=== PATIENT | female | born 1945 | race African-American/Black ===

== ENCOUNTER 2017-02-28 12:06 | Emergency (ER) | payer MEDICARE ==
[~2017-02-28 12:06] MED LIST: ARIC5TAB PO; HYDR-3516 PEG; LISI10TA3 PO; NIFE10; PREV30TA3 G-TUBE
[2017-02-28 12:18] VITALS: BP 191/107; PULSE 112; RESP 20; TEMP 97.9; O2SAT 100
[2017-02-28] MEDS ORDERED: SODIUM CHLORID 0.9% 500 ML INJ 500 ML IV ONE (12:30)
--- NOTE | 2017-02-28 12:36 | PD ---
HPI Chief Complaint: Intake Clerk Problem Time Seen by Provider: 12:14 Travel History International Travel<30 days: No Contact w/Intl Traveler<30days: No Traveled to known affect area: No History of Present Illness HPI The patient is a 72-year-old [place] female who presents emergency department via private transport for gastrostomy tube replacement. The patient has a history of intraparenchymal hemorrhage, upon arrival is nonverbal. According to the paperwork the patient was unable to have her gastrostomy tube flushed and they were unable to flush and/or drawback from the gastrostomy tube. The patient is nonverbal, is unable to provide any insight. It appears the patient has a gastrostomy tube placed, however, there is no visible valve for the blowing of the gastrostomy tube. PFSH Past Medical History Arthritis: Yes Heart Rhythm Problems: No Cancer: No Cardiovascular Problems: Yes High Cholesterol: No Chest Pain: No Congestive Heart Failure: No Endocrine: No Gastrointestinal Disorders: Yes GERD: Yes Genitourinary: Yes Hiatal Hernia: No Hypertension: Yes Immune Disorder: No Kidney Stones: No Medical other: Yes (DYSPHAGIA, APHSIA, BRAIN SURGERY, UTI, BELTRAN) Musculoskeletal: Yes (CONTRACTED) Neurologic: Yes Psychiatric: Yes Reproductive: No Respiratory: No Renal Failure: No Ulcer: No Tetanus Vaccination: Unknown Past Surgical History Abdominal Surgery: Yes (PEG TUBE) Cardiac Surgery: No Ear Surgery: Yes Endocrine Surgery: No Eye Surgery: No Genitourinary Surgery: No Gynecologic Surgery: Yes (HYSTERECTOMY) Neurologic Surgery: Yes (LEFT SIDED CRANIOTOMY 09/17/2016) Oral Surgery: No Thoracic Surgery: No Other Surgery: Yes Social History Alcohol Use: No Tobacco Use: No (unable to obtain) Substance Use: No Allergies-Medications (Allergen,Severity, Reaction): Coded Allergies: No Known Allergies (Unverified , 02/28/17) UNOBTAINABLE (Unverified , 09/17/16) Reported Meds & Prescriptions Reported Meds & Active Scripts Active Lisinopril 10 Mg Tab 20 Mg PO Q12HR 30 Days hold for sbp less 120 Hydrocodone-Acetaminophen 5-325 mg Tab 1 Tab PEG Q4H PRN Prevacid Solutab ODT (Lansoprazole) 30 Mg Tab 30 Mg G-TUBE DAILY Mix with 4 ml water before giving via tube. Reported Vesicare (Solifenacin) 5 Mg Tab 5 Mg PO DAILY Milk of Magnesia Liq (Magnesium Hydroxide) 400 Mg/5 Ml Susp 30 Ml PO Q6H PRN Donepezil 5 Mg Tab 5 Mg G-TUBE HS Magnesium Citrate Liq (Magnesium Citrate) 300 Ml Liq 300 Ml PO DIRECTED PRN Multivitamin Women (Multiple Vitamins W/ Minerals) 1 Tab Tab 1 Tab G-TUBE DAILY Ascorbic Acid 500 Mg Tab 500 Mg G-TUBE DAILY Amlodipine (Amlodipine Besylate) 5 Mg Tab 5 Mg G-TUBE DAILY Review of Systems ROS Limitations: Clinical Condition Except as stated in HPI: all other systems reviewed are Neg Physical Exam Narrative GENERAL: 72-year-old after [place] female who is nonverbal. SKIN: Focused skin assessment warm/dry. HEAD: Atraumatic. Normocephalic. EYES: Pupils equal and round. 3 mm bilateral and reactive. Gaze is mostly to the left. ENT: No nasal bleeding or discharge. Dry mucous membranes. NECK: Trachea midline. No JVD. CARDIOVASCULAR: Regular, tachycardic with a heart rate of 110. RESPIRATORY: No accessory muscle use. Clear to auscultation. Breath sounds equal bilaterally. GASTROINTESTINAL: Abdomen soft, gastrostomy tube in place. Beltran catheter in place. MUSCULOSKELETAL: Contractures of the extremities. Right upper extremity is in a brace. NEUROLOGICAL: Eyes open, nonverbal, will recheck with her left upper extremity. PSYCHIATRIC: Unable to assess. Data Data Last Documented VS Vital Signs Date Time Temp Pulse Resp B/P Pulse Ox O2 Delivery O2 Flow Rate FiO2 02/28/17 16:27 107 20 176/95 100 02/28/17 12:18 97.9 Orders Complete Blood Count With Diff (02/28/17 12:27) Basic Metabolic Panel (Bmp) (02/28/17 12:27) Act Partial Throm Time (Ptt) (02/28/17 12:27) Prothrombin Time / Inr (Pt) (02/28/17 12:27) Sodium Chlorid 0.9% 500 Ml Inj (Ns 500 M (02/28/17 12:30) Gastrostomy Tube Injection (02/28/17 ) Iohexol 350 Inj (Omnipaque 350 Inj) (02/28/17 16:22) Labs Laboratory Tests Test 02/28/17 12:25 White Blood Count 6.2 TH/MM3 Red Blood Count 5.77 MIL/MM3 Hemoglobin 12.1 GM/DL Hematocrit 39.2 % Mean Corpuscular Volume 68.0 FL Mean Corpuscular Hemoglobin 21.0 PG Mean Corpuscular Hemoglobin 30.9 % Concent Red Cell Distribution Width 17.0 % Platelet Count 287 TH/MM3 Mean Platelet Volume 10.3 FL Neutrophils (%) (Auto) 69.6 % Lymphocytes (%) (Auto) 22.4 % Monocytes (%) (Auto) 6.6 % Eosinophils (%) (Auto) 0.5 % Basophils (%) (Auto) 0.9 % Neutrophils # (Auto) 4.3 TH/MM3 Lymphocytes # (Auto) 1.4 TH/MM3 Monocytes # (Auto) 0.4 TH/MM3 Eosinophils # (Auto) 0.0 TH/MM3 Basophils # (Auto) 0.1 TH/MM3 CBC Comment AUTO DIFF Differential Comment AUTO DIFF CONFIRMED Platelet Estimate NORMAL Platelet Morphology Comment NORMAL Ovalocytes 1+ Prothrombin Time 11.1 SEC Prothromb Time International 1.0 RATIO Ratio Activated Partial 24.9 SEC Thromboplast Time Sodium Level 140 MEQ/L Potassium Level 4.1 MEQ/L Chloride Level 101 MEQ/L Carbon Dioxide Level 30.0 MEQ/L Anion Gap 9 MEQ/L Blood Urea Nitrogen 16 MG/DL Creatinine 0.50 MG/DL Estimat Glomerular Filtration 146 ML/MIN Rate Random Glucose 112 MG/DL Calcium Level 10.2 MG/DL [facility] Medical Decision Making Medical Screen Exam Complete: Yes Emergency Medical Condition: Yes Medical Record Reviewed: Yes Interpretation(s) Laboratory Tests Test 02/28/17 12:25 White Blood Count 6.2 TH/MM3 Red Blood Count 5.77 MIL/MM3 Hemoglobin 12.1 GM/DL Hematocrit 39.2 % Mean Corpuscular Volume 68.0 FL Mean Corpuscular Hemoglobin 21.0 PG Mean Corpuscular Hemoglobin 30.9 % Concent Red Cell Distribution Width 17.0 % Platelet Count 287 TH/MM3 Mean Platelet Volume 10.3 FL Neutrophils (%) (Auto) 69.6 % Lymphocytes (%) (Auto) 22.4 % Monocytes (%) (Auto) 6.6 % Eosinophils (%) (Auto) 0.5 % Basophils (%) (Auto) 0.9 % Neutrophils # (Auto) 4.3 TH/MM3 Lymphocytes # (Auto) 1.4 TH/MM3 Monocytes # (Auto) 0.4 TH/MM3 Eosinophils # (Auto) 0.0 TH/MM3 Basophils # (Auto) 0.1 TH/MM3 CBC Comment AUTO DIFF Differential Comment AUTO DIFF CONFIRMED Platelet Estimate NORMAL Platelet Morphology Comment NORMAL Ovalocytes 1+ Prothrombin Time 11.1 SEC Prothromb Time International 1.0 RATIO Ratio Activated Partial 24.9 SEC Thromboplast Time Sodium Level 140 MEQ/L Potassium Level 4.1 MEQ/L Chloride Level 101 MEQ/L Carbon Dioxide Level 30.0 MEQ/L Anion Gap 9 MEQ/L Blood Urea Nitrogen 16 MG/DL Creatinine 0.50 MG/DL Estimat Glomerular Filtration 146 ML/MIN Rate Random Glucose 112 MG/DL Calcium Level 10.2 MG/DL Differential Diagnosis Differential diagnosis includes gastrostomy tube malfunction, colitis gastrostomy tube, GJ tube malfunction, dehydration. Narrative Course IV was established, labs are drawn and sent, and the patient was placed on cardiac telemetry monitoring and continuous pulse oximetry monitoring. The patient was administered 1 L of IV fluids. Consult was placed interventional radiology for gastrostomy tube replacement. Labs are unremarkable. Patient is medically clear for IR. The patient went to interventional radiology, they were able to flush and declog the gastrostomy tube, they performed an x-ray with contrast which revealed proper placement, the patient is stable for discharge home. The patient's blood pressure was elevated 170/100 with a heart rate of 99, she was unable to get her medications this morning secondary to the gastrostomy tube malfunction. Therefore, patient was administered labetalol 20 mg intravenously. The patient was discharged back to the detention. Diagnosis Primary Impression: Malfunction of gastrostomy tube Patient Instructions: General Instructions Additional Instructions: Discharge back to detention. Return if symptoms worsen or progress. Disposition: 03 DISCHARGE TO SNF (discharge back to detention) Condition: Stable Adam Santoyo MD February 28, 2017 12:36
[2017-02-28] MEDS ORDERED: VESI5TAB PO (12:47)
[2017-02-28] MEDS ORDERED: MILKSUS PO (12:47)
[2017-02-28] MEDS ORDERED: DONE5TAB7 G-TUBE (12:47)
[2017-02-28] MEDS ORDERED: ASCO500T G-TUBE (12:47)
[2017-02-28] MEDS ORDERED: MULT-120 G-TUBE (12:47)
[2017-02-28] MEDS ORDERED: MAGNSOL2 PO (12:47)
[2017-02-28] MEDS ORDERED: AMLO5TAB2 G-TUBE (12:47)
[2017-02-28 12:48] LABS: AUTOMATED NEUTROPHIL # 4.3 TH/MM3 (1.8-7.7); BASOPHIL # 0.1 TH/MM3 (0-0.2); BASOPHIL % 0.9 % (0.0-2.0); EOSINOPHIL % 0.5 % (0.0-4.0); HEMATOCRIT 39.2 % (35.0-46.0); LYMPH % 22.4 % (9.0-44.0); LYMPHOCYTE # 1.4 TH/MM3 (1.0-4.8); MEAN CORPUSCULAR HGB CONC 30.9 % (32.0-36.0); MONO % 6.6 % (0.0-8.0); NEUT % 69.6 % (16.0-70.0); PLATELET COUNT 287 TH/MM3 (150-450); RED BLOOD COUNT 5.77 MIL/MM3 (4.00-5.30); WHITE BLOOD COUNT 6.2 TH/MM3 (4.0-11.0)
[2017-02-28 12:50] LABS: HEMO FLAGS AUTO DIFF
[2017-02-28 12:57] LABS: APTT (PATIENT) 24.9 SEC (24.3-30.1); PROTHROMBIN TIME - PATIENT 11.1 SEC (9.8-11.6)
[2017-02-28 13:02] LABS: POTASSIUM 4.1 MEQ/L (3.5-5.1)
[2017-02-28 13:32] LABS: OVALOCYTES 1+ (NORMAL); PLATELET ESTIMATE SMEAR NORMAL (NORMAL); PLATELET MORPHOLOGY NORMAL (NORMAL); SCAN/DIFF AUTO DIFF CONFIRMED
[2017-02-28] MEDS ORDERED: IOHEXOL 350 MG/ML 50 ML BTL (for RAD DIAG) G-TUBE ONE (16:22)
[2017-02-28 16:27] VITALS: BP 176/95; PULSE 107; RESP 20; O2SAT 100
--- NOTE | 2017-02-28 16:40 | RADRPT ---
EXAM DATE/TIME: 02/28/2017 16:47 [facility] COMPARISON: No previous studies available for comparison. INDICATIONS : Patient with a clogged gastrostomy tube. MEDICAL HISTORY : Arthritis GERD HTN Dysphagia Aphsia UTI SURGICAL HISTORY : PEG Tube Ear Surgery Hysterectomy Left sided craniotomy ENCOUNTER: Initial ACUITY: 1 day PAIN SCORE: FLUORO TIME: 0.2 minutes IMAGE SERIES: 1 CONTRAST: 5 cc Omnipaque (iohexol) 350 PROCEDURE : 1. Fluoroscopically guided tube injection. 2. Conscious sedation with continuous EKG and oximetry monitoring. The risks, benefits and alternatives to the procedure were explained and verbal and written consent w as obtained. The site was prepped in sterile fashion. Full sterile technique was used, including ca p, mask, sterile gloves and gown and a large sterile sheet. Hand hygiene and 2% chlorhexidine and/or betadine/alcohol prep was utilized per protocol for cutaneous antisepsis. With fluoroscopic guidance the previously placed tube was injected demonstrating the tube to be in go od position and functioning normally. Conscious sedation was performed with the prescribed dosages and duration as above in the presence of an independent trained radiology nurse to assist in the monitoring of the patient. EKG and oximetry remained stable throughout the procedure. The patient tolerated the procedure well and there were n o complications. The patient was sent to post anesthesia recovery in stable condition. CONCLUSION: Uncomplicated tube injection as above. Peter Olguin MD on February 28, 2017 at 16:38 Board Certified Radiologist. This report was verified electronically.
[2017-02-28 16:45] VITALS: BP 174/85; PULSE 93; RESP 15; O2SAT 100
[2017-02-28] MEDS ORDERED: LABETALOL HCL 100 MG/20 ML VIAL IV PUSH ONE (16:45)
[2017-02-28 18:43] VITALS: BP 172/98; PULSE 95; RESP 14; O2SAT 100
== END 2017-02-28 20:12 ==
LOC: NEPE 12:06
DX: T85.518A Breakdown (mechanical) of other gastrointestinal prosthetic devices, implants and grafts, initial encounter (principal); Z43.1 Encounter for attention to gastrostomy; Z46.59 Encounter for fitting and adjustment of other gastrointestinal appliance and device; I10 Essential (primary) hypertension
CPT/HCPCS: 49465; 80048; 85025; 85610; 85730; 96361; 96374; 99283; J7040; Q9967

== ENCOUNTER 2017-03-16 18:50 | Emergency (ER) | payer MEDICARE ==
[~2017-03-16] VITALS: Ht 165.1 cm; Wt 60.0 kg
[~2017-03-16 18:50] MED LIST changes: +AMLO5TAB2 G-TUBE; -ARIC5TAB PO; +ASCO500T G-TUBE; +DONE5TAB7 G-TUBE; +MAGNSOL2 PO; +MILKSUS PO; +MULT-120 G-TUBE; -NIFE10; +VESI5TAB PO
[2017-03-16 19:15] VITALS: BP 192/104; PULSE 104; RESP 16; TEMP 98.1; O2SAT 98
--- NOTE | 2017-03-16 19:44 | PD ---
HPI Chief Complaint: Medical Clearance Time Seen by Provider: 19:35 Travel History International Travel<30 days: No Contact w/Intl Traveler<30days: No Traveled to known affect area: No History of Present Illness HPI 72-year-old female was sent from [facility] and rehabilitation evaluation of a questionable lump over the left eyebrow of unknown origin at the request the patient's daughter. 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 She has an additional history of hypertension, seizure disorder, acute renal failure, encephalopathy, GERD, ulcer , neuromuscular dysfunction bladder, and intracerebral hemorrhage. Patient's baseline is reported to be alert, disoriented, and cannot follow simple instructions. Secondary to patient's history of aphasia secondary to CVA, H&P is limited to the documentation sent by [facility] facility. PFS Past Medical History Arthritis: Yes Heart Rhythm Problems: No Cancer: No Cardiovascular Problems: Yes High Cholesterol: No Chest Pain: No Congestive Heart Failure: No Endocrine: No Gastrointestinal Disorders: Yes GERD: Yes Genitourinary: Yes Hiatal Hernia: No Hypertension: Yes Immune Disorder: No Kidney Stones: No Musculoskeletal: Yes (CONTRACTED) Neurologic: Yes Psychiatric: Yes Reproductive: No Respiratory: No Renal Failure: No Ulcer: No Past Surgical History Abdominal Surgery: Yes (PEG TUBE) Cardiac Surgery: No Ear Surgery: Yes Endocrine Surgery: No Eye Surgery: No Genitourinary Surgery: No Gynecologic Surgery: Yes (HYSTERECTOMY) Neurologic Surgery: Yes (LEFT SIDED CRANIOTOMY 09/17/2016, cranioplasty.) Oral Surgery: No Thoracic Surgery: No Other Surgery: Yes Social History Alcohol Use: No Tobacco Use: No (unable to obtain) Substance Use: No Allergies-Medications (Allergen,Severity, Reaction): Coded Allergies: No Known Allergies (Unverified , 03/17/17) Reported Meds & Prescriptions Reported Meds & Active Scripts Active Lisinopril 10 Mg Tab 20 Mg PO Q12HR 30 Days hold for sbp less 120 Hydrocodone-Acetaminophen 5-325 mg Tab 1 Tab PEG Q4H PRN Prevacid Solutab ODT (Lansoprazole) 30 Mg Tab 30 Mg G-TUBE DAILY Mix with 4 ml water before giving via tube. Reported Vesicare (Solifenacin) 5 Mg Tab 5 Mg PO DAILY Milk of Magnesia Liq (Magnesium Hydroxide) 400 Mg/5 Ml Susp 30 Ml PO Q6H PRN Donepezil 5 Mg Tab 5 Mg G-TUBE HS Magnesium Citrate Liq (Magnesium Citrate) 300 Ml Liq 300 Ml PO DIRECTED PRN Multivitamin Women (Multiple Vitamins W/ Minerals) 1 Tab Tab 1 Tab G-TUBE DAILY Ascorbic Acid 500 Mg Tab 500 Mg G-TUBE DAILY Amlodipine (Amlodipine Besylate) 5 Mg Tab 5 Mg G-TUBE DAILY Review of Systems ROS Limitations: Speech Impaired Except as stated in HPI: all other systems reviewed are Neg Physical Exam Narrative GENERAL: Well-developed, well nourished, in no acute distress, and non-ill appearing. SKIN: Focused skin assessment warm and dry. No obvious lesion, hematoma, fluctuation or induration, or tenderness noted over area of concern. Possible small amount of soft tissue swelling. HEAD: Atraumatic. Normocephalic. EYES: Pupils equal and round. EOMI. No scleral icterus. No injection or drainage. ENT: No nasal bleeding or discharge. Mucous membranes pink and moist. NECK: Trachea midline. Supple. No nuclear rigidity. CARDIOVASCULAR: Regular rate and rhythm. No murmur appreciated. RESPIRATORY: No accessory muscle use. No respiratory distress. Clear to auscultation. Breath sounds equal bilaterally. GASTROINTESTINAL: Abdomen soft, non-tender, nondistended. Hepatic and splenic margins not palpable. No pulsatile mass. MUSCULOSKELETAL: No obvious deformities. No clubbing. No cyanosis. No edema. Full range of motion. NEUROLOGICAL: Awake and alert. Data Data Last Documented VS Orders Ct Brain W/O Iv Contrast(Rout) (03/16/17 ) Ct Cerv Spine W/O Contrast (03/16/17 ) Ct Facial Bones W/O Iv Cont (03/16/17 ) Iv Access Insert/Monitor (03/16/17 20:05) Ecg Monitoring (03/16/17 20:05) Oximetry (03/16/17 20:05) Sodium Chloride 0.9% Flush (Ns Flush) (03/16/17 20:15) Nicardipine Inj (Cardene Inj) (03/16/17 20:15) Lisinopril (Prinivil) (03/16/17 20:30) MDM Medical Decision Making Medical Screen Exam Complete: Yes Emergency Medical Condition: Yes Interpretation(s) CT of cervical spine reviewed with radiologist shows: 1. No fracture or acute appearing malalignment of the cervical spine. 2. Degenerative changes as above. 3. Age indeterminate but most likely nonacute posterior disc protrusion at C3/ C4. CT of facial bones reviewed with radiologist shows: Intact face. CT of head reviewed with radiologist shows: There is a potential of the subcentimeter acute focus of subarachnoid hemorrhage left parietal lobe. A left frontal scalp hematoma is noted. Other findings are chronic Differential Diagnosis Fracture, contusion, strain, hematoma, cranial hemorrhage, head injury, other Narrative Course 2014 discussed all findings with patient's daughter's who is now at the bedside. States that the swelling has decreased significantly. States she is not certain what happened. States that she had her mom set up she eats went out to her car and when she came back noticed a bump on the head. Reports a subsided significantly from initial onset. Reports the patient has a follow-up appointment with Dr. Moore tomorrow. Patient in no obvious distress upon re-evaluation. All pertinent Radiology result(s) discussed with patient/family. Discussed patient with Dr. Khan prior to discharge, who is in agreement with plan of care and disposition.. Any questions/concerns in reference to patient diagnosis/condition discussed and clarified prior to patient's discharge. Reinforced sheer importance of close follow up with patient's primary physician or primary care clinic and neurosurgeon. Instructed patient to return to ED immediately, if symptoms return /worsen. Pt's daughter showed understanding of above instructions. Further instructions and recommendations were detailed in discharge paperwork. Pt left without difficulty out of ED at discharge. Physician Communication Physician Communication [address] findings with Dr. Higginbotham, neurosurgeon personal development mentor, states is really nothing to do for this the patient can be followed up in 1-2 days by his office for repeat CT as an outpatient. Diagnosis Primary Impression: Subarachnoid hemorrhage Additional Impression: Hematoma Patient Instructions: General Instructions, Hematoma (ED), Subarachnoid Hemorrhage (DC) Additional Instructions: Follow-up with Dr. Moore tomorrow as scheduled. Return to the emergency department if symptoms get worse. Disposition: 01 DISCHARGE HOME Condition: Stable Farhan Luna March 16, 2017 19:44
--- NOTE | 2017-03-16 19:48 | RADRPT ---
EXAM DATE/TIME: 03/16/2017 19:35 [facility] COMPARISON: CT BRAIN W/O CONTRAST, September 19, 2016, 4:27. INDICATIONS : Possible fall. Hematoma above left eyebrow. RADIATION DOSE: 56.35 CTDIvol (mGy) MEDICAL HISTORY : Cardiovascular disease. Hypertension. Dementia.Chronic kidney disease. SURGICAL HISTORY : Craniotomy. Hysterectomy. ENCOUNTER: Initial ACUITY: 1 day PAIN SCALE: 0/10 LOCATION: cranial TECHNIQUE: Multiple contiguous axial images were obtained of the head. Using automated exposure control and adj ustment of the mA and/or kV according to patient size, radiation dose was kept as low as reasonably a chievable to obtain optimal diagnostic quality images. FINDINGS: 6 mm focus of spontaneous density seen of the left high parietal lobe, most likely subarachnoid. No o ther evidence of intercranial hemorrhage. There is no mass effect or midline shift. No evidence of an acute ischemic event. Patient has had previous left craniotomy. Large area of left parietal, left frontal and left tem poral encephalomalacia noted. There is chronic appearing thickening of the overlying dura. Craniotomy defect has been repaired since the prior CT and the previously seen drain has been removed. Small left frontal scalp contusion. No acute skull abnormality demonstrated. CONCLUSION: There is a potential subcentimeter acute focus of subarachnoid hemorrhage of the left parietal lobe. A left frontal scalp hematoma is noted. Other findings are chronic and please see above. Bal Moralez MD on March 16, 2017 at 19:43 Board Certified Radiologist. This report was verified electronically.
--- NOTE | 2017-03-16 19:52 | RADRPT ---
EXAM DATE/TIME: 03/16/2017 19:35 [facility] COMPARISON: No previous studies available for comparison. INDICATIONS : Possible fall. RADIATION DOSE: 24.27 CTDIvol (mGy) MEDICAL HISTORY : Cardiovascular disease. Hypertension. Dementia.Chronic kidney disease. SURGICAL HISTORY : Craniotomy. Hysterectomy. ENCOUNTER: Initial ACUITY: 1 day PAIN SCALE: 0/10 LOCATION: neck TECHNIQUE: Volumetric scanning of the cervical spine was performed. Multiplanar reconstructions in the sagittal, coronal and oblique axial planes were performed. Using automated exposure control and adjustment o f the mA and/or kV according to patient size, radiation dose was kept as low as reasonably achievable to obtain optimal diagnostic quality images. FINDINGS: There are a few millimeters of anterolisthesis at C4/C5 that appear degenerative. There is a degenera tive appearing kyphosis centered around C5/C6. No fracture is demonstrated or evidence of acute malal ignment. Vertebral bodies have normal height. There is multilevel disc space narrowing with uncovertebral and facet osteoarthritis, severe at C5/C6 , moderate at C6/C7 and C7/T1, mild at the other levels. There is a moderate size posterior disc prot rusion at C3/C4 causing mild spinal stenosis. Juxtavertebral soft tissues are within normal limits. CONCLUSION: 1. No fracture or acute appearing malalignment of the cervical spine. 2. Degenerative changes as above. 3. Age indeterminate but most likely nonacute posterior disc protrusion at C3/C4. Bal Moralez MD on March 16, 2017 at 19:48 Board Certified Radiologist. This report was verified electronically.
--- NOTE | 2017-03-16 19:54 | RADRPT ---
EXAM DATE/TIME: 03/16/2017 19:35 [facility] COMPARISON: No previous studies available for comparison. INDICATIONS : Possible fall. Hematoma above left eyebrow. RADIATION DOSE: 21.96 CTDIvol (mGy) MEDICAL HISTORY : Dementia. Hypertension. Cardiovascular diseaseChronic kidney disease. SURGICAL HISTORY : Craniotomy. Hysterectomy. ENCOUNTER: Initial ACUITY: 1 day PAIN SCORE: 2/10 LOCATION: Left facial TECHNIQUE: Volumetric scanning of the facial bones was performed. Using automated exposure control and adjustme nt of the mA and/or kV according to patient size, radiation dose was kept as low as reasonably achiev able to obtain optimal diagnostic quality images. FINDINGS: ORBITS: The orbital and infraorbital osseous structures are intact. The retroconal structures have a normal configuration. No radiopaque foreign bodies are seen. NASAL BONE: The nasal bone and maxillary spine are intact ZYGOMATIC ARCHES: Symmetric without evidence of fracture. SINUSES: The maxillary, ethmoid and frontal sinuses are intact. No air-fluid levels seen. NASAL CAVITY: The nasal septum is intact and midline. The lacrimal ducts are intact. SOFT TISSUES: No radiopaque foreign bodies seen. No soft-tissue swelling is seen. INTRACRANIAL: No intracranial air seen. CRIBIFORM PLATE: Grossly intact. CONCLUSION: Intact face. Bal Moralez MD on March 16, 2017 at 19:52 Board Certified Radiologist. This report was verified electronically.
[2017-03-16 20:00] VITALS: BP 186/92; PULSE 104; RESP 15; O2SAT 97
[2017-03-16] MEDS ORDERED: SODIUM CHLORIDE 0.9% FLUSH 10 ML FLUSH IV FLUSH PRN (20:15)
[2017-03-16] MEDS ORDERED: niCARdipine INJ 25 MG in SODIUM CHLOR 0.9% 250 ML INJ 250 ML IV ONE (20:15)
[2017-03-16] MEDS ORDERED: LISINOPRIL 20 MG TAB PEG ONE (20:30)
[2017-03-16 21:00] VITALS: BP 165/92; PULSE 103; RESP 15; O2SAT 97
[2017-03-17 02:09] VITALS: BP 142/80; PULSE 82; RESP 20; TEMP 99.3; O2SAT 98
[2017-03-17 08:25] VITALS: BP 144/84; PULSE 98; RESP 16; O2SAT 98
[2017-03-17 10:26] VITALS: BP 142/78
== END 2017-03-17 10:28 | disposition home or self-care (01) ==
LOC: NEPE 18:50 → NEPD 03-17 10:28
DX: I60.7 Nontraumatic subarachnoid hemorrhage from unspecified intracranial artery (principal); S00.83XA Contusion of other part of head, initial encounter; I69.320 Aphasia following cerebral infarction; I69.359 Hemiplegia and hemiparesis following cerebral infarction affecting unspecified side; I69.391 Dysphagia following cerebral infarction; I10 Essential (primary) hypertension; N28.89 Other specified disorders of kidney and ureter; K21.9 Gastro-esophageal reflux disease without esophagitis
CPT/HCPCS: 70450; 70486; 72125

== ENCOUNTER 2017-06-19 14:07 | Inpatient (IN) | payer MEDICARE ==
[~2017-06-19] VITALS: Ht 175.3 cm; Wt 58.8 kg
[2017-06-19] VITALS (11 sets, daily range): BP systolic 146–227; BP diastolic 69–108; PULSE 78–133; RESP 14–16; TEMP 97.8–98.9; O2SAT 98–100
[~2017-06-19 14:07] MED LIST changes: -AMLO5TAB2 G-TUBE; +AMLO5TAB2 PEG; -ASCO500T G-TUBE; +ASCO500T PEG; -DONE5TAB7 G-TUBE; +DONE5TAB7 PEG; +MAGNSOL2 PEG; -MAGNSOL2 PO; +MILKSUS PEG; -MILKSUS PO
[2017-06-19] MEDS ORDERED: LORazepam 2 MG/ML VIAL ONE (15:28)
[2017-06-19] MEDS ORDERED: LORazepam 2 MG/ML VIAL IM ONE (15:30)
[2017-06-19 15:38] LABS: AUTOMATED NEUTROPHIL # 3.6 TH/MM3 (1.8-7.7); BASOPHIL # 0.1 TH/MM3 (0-0.2); BASOPHIL % 1.2 % (0.0-2.0); EOSINOPHIL # 0.1 TH/MM3 (0-0.4); EOSINOPHIL % 1.1 % (0.0-4.0); HEMATOCRIT 38.4 % (35.0-46.0); HEMO FLAGS DIFF FINAL; LYMPH % 33.7 % (9.0-44.0); LYMPHOCYTE # 2.1 TH/MM3 (1.0-4.8); MEAN CELL VOLUME 69.5 FL (80.0-100.0); MEAN CORPUSCULAR HEMOGLOBIN 21.4 PG (27.0-34.0); MEAN CORPUSCULAR HGB CONC 30.8 % (32.0-36.0); MONO % 7.7 % (0.0-8.0); NEUT % 56.3 % (16.0-70.0); PLATELET COUNT 274 TH/MM3 (150-450); RED BLOOD COUNT 5.52 MIL/MM3 (4.00-5.30); RED CELL DISTRIBUTION WIDTH 17.9 % (11.6-17.2); WHITE BLOOD COUNT 6.3 TH/MM3 (4.0-11.0)
--- NOTE | 2017-06-19 15:43 | PD.CONS ---
HPI Service neurosurgery Consult Requested By Dr Hicks Reason for Consult Brain lesion Primary Care Physician Barber Tucker, DO History of Present Illness This is a 72 year old female who was brought to [place] emergency department with altered mental status. She has history of prior ICH and a prior craniotomy in 2016. She had a hemorrhagic stroke and she is at baseline aphasic. In addition nshe is bedridden and is fed by a G-tube. She is a resident [facility], followed by Dr. Reis. She was taken to the emergency department having had a CT scan done for increased generalized weakness and lethargy. She was seen at [facility] ER and a CT scan showed a 1 cm lesion in the right parietal lobe which is hyperdense concerning for an intracranial hemorrhage. Upon presentation to [facility] ER she was hemodynamically stable. She had a generalized tonic clonic seizure. No tongue bitting. No incontinence of stool. No incontinence of urine. she was given anticonvulsants ROS - General Review of Systems Constitutional: COMPLAINS OF: Fever, Dizziness Patient unable to give ROS PFSH Past Family Social History Allergies: Coded Allergies: No Known Allergies (Unverified , 03/17/17) Past Medical History Arthritis CVA Dementia GERD HTN Past Surgical History Peg tube placement Hysterectomy ear surgery Active Ordered Medications Current Medications Medications (Trade) Dose Ordered Sig/Yeimy Route Start Time Stop Time Status Last Admin (Zofran Inj) 4 mg Q6H PRN IV 06/19/17 17:30 (Tylenol) 650 mg Q4H PRN PO 06/19/17 17:30 (Tylenol Supp) 650 mg Q4H PRN RECTAL 06/19/17 17:30 (NS Flush) 2 ml BID IV FLUSH 06/19/17 21:00 06/20/17 09:00 (NS Flush) 2 ml UNSCH PRN IVF 06/19/17 17:30 (Norvasc) 5 mg DAILY G-TUBE 06/20/17 09:00 06/20/17 08:59 (Vitamin C) 500 mg DAILY G-TUBE 06/20/17 09:00 06/20/17 09:00 (Aricept) 5 mg HS G-TUBE 06/19/17 21:00 06/19/17 20:45 ([place] 5-325 Mg) 1 tab Q4H PRN PEG 06/19/17 17:45 (Prevacid Odt) 30 mg DAILY G-TUBE 06/20/17 09:00 06/20/17 08:59 (Prinivil) 20 mg Q12HR PO 06/19/17 21:00 06/20/17 09:00 (Milk Of Magnesia Liq) 30 ml Q6H PRN PO 06/19/17 17:45 (Detrol La) 2 mg DAILY PO 06/19/17 09:00 06/20/17 09:00 Nicardipine HCl 25 mg/Sodium Chloride 260 ml @ 52 mls/hr Q5H PRN IV 06/19/17 21:28 Family History Unable to give history Social History Lives at [facility] Physical Exam Physical Exam Vital Signs Vital Signs Date Time Temp Pulse Resp B/P (MAP) Pulse Ox O2 Delivery O2 Flow Rate FiO2 06/20/17 14:00 93 06/20/17 12:00 74 06/20/17 10:00 74 06/20/17 08:00 74 06/20/17 07:00 100 Room Air 06/20/17 07:00 76 06/20/17 06:00 73 06/20/17 04:00 78 06/20/17 04:00 98.9 78 15 107/60 (76) 99 06/20/17 02:00 77 06/20/17 00:00 98.7 83 15 129/68 (88) 99 06/20/17 00:00 74 06/19/17 23:00 78 06/19/17 23:00 80 123/72 06/19/17 22:00 80 06/19/17 21:16 89 161/76 06/19/17 20:45 90 177/83 06/19/17 20:00 99 Room Air 06/19/17 20:00 98.9 99 14 163/85 (111) 98 06/19/17 20:00 99 06/19/17 19:20 99 06/19/17 18:53 96 16 146/78 (100) 99 06/19/17 18:01 93 16 148/69 (95) 100 Room Air 06/19/17 17:58 21 06/19/17 17:46 112 16 164/89 (114) 100 Room Air 06/19/17 17:13 118 06/19/17 17:11 124 15 199/95 (129) 100 Room Air 06/19/17 16:00 133 16 227/108 (147) 98 Room Air 06/19/17 14:51 95 100 06/19/17 14:48 97.8 87 14 156/80 (105) 99 Physical Exam CONSTITUTIONAL/GENERAL: This is an frail, elderly female in bed in no acute distress. TUBES/LINES/DRAINS: PIV's, Choudhury catheter. SKIN: No jaundice, rashes, or lesions. No wounds seen anteriorly. Skin temperature appropriate. Not diaphoretic. Per DTR excoriation on buttocks HEAD: Atraumatic. Normocephalic. EYES: No scleral icterus. No injection or drainage. ENT: Unable to evaluate hearing. Nose without bleeding or purulent drainage. Moist oral mucosa. NECK: Trachea midline. Supple. CARDIOVASCULAR: Regular rate and rhythm without murmurs, gallops, or rubs. No JVD. Peripheral pulses symmetric. RESPIRATORY/CHEST: Symmetric, unlabored respirations. Clear, diminished to auscultation. Breath sounds equal bilaterally. No wheezes, rales, or rhonchi. GASTROINTESTINAL: Abdomen soft, non-tender, nondistended. Bowel sounds present. PEG tube in place. GENITOURINARY: Without palpable bladder distension. Choudhury catheter in place. MUSCULOSKELETAL: Muscular atrophy in all 4 extremities. Contracted extremities. Bilateral foot drop. No mottling or clubbing. NEUROLOGICAL: Awake and alert. Eyes open, not tracking. Not following commands. Nonverbal. Left-sided facial droop noted. Laboratory Past Family Social History Allergies: Coded Allergies: No Known Allergies (Unverified , 03/17/17) Physical Exam Vital Signs Vital Signs Date Time Temp Pulse Resp B/P (MAP) Pulse Ox O2 Delivery O2 Flow Rate FiO2 06/19/17 14:51 95 100 06/19/17 14:48 97.8 87 14 156/80 (105) 99 Laboratory Laboratory Tests Test 06/19/17 15:00 White Blood Count 6.3 Red Blood Count 5.52 Hemoglobin 11.8 Hematocrit 38.4 Mean Corpuscular Volume 69.5 Mean Corpuscular Hemoglobin 21.4 Mean Corpuscular Hemoglobin Concent 30.8 Red Cell Distribution Width 17.9 Platelet Count 274 Mean Platelet Volume 10.1 Neutrophils (%) (Auto) 56.3 Lymphocytes (%) (Auto) 33.7 Monocytes (%) (Auto) 7.7 Eosinophils (%) (Auto) 1.1 Basophils (%) (Auto) 1.2 Neutrophils # (Auto) 3.6 Lymphocytes # (Auto) 2.1 Monocytes # (Auto) 0.5 Eosinophils # (Auto) 0.1 Basophils # (Auto) 0.1 CBC Comment DIFF FINAL Differential Comment Result Diagram: 06/19/17 1500 Attending Statement Neuro. neuro checks in a serial fashion. I recommend nonoperative supportive care. I have discussed the case with the emergency room physician Antihypertensives to keep her blood pressure controlled Keppra for prophylaxis of seizures. Pulmonary. aggressive pulmonary toilette, nasotracheal suction, and breathing treatments with nebulizers. PT and OT evaluation Nutrition. Oral diet Renal. monitor closely urine output, BUN and creatinine Endocrine. Monitor serial Acu checks and SSI as needed in detail ID monitor for signs of infection Protonix for stress ulcer prophylaxis Jero audrey and SCD's for DVT prophylaxis Blaise Moore MD Jun 19, 2017 15:43
[2017-06-19 15:44] LABS: BACTERIA, URINE MANY /hpf; BLOOD, URINE TRACE (NEG); COMMENT (UR) CULTURE INDICATED; CULTURE IF INDICATED CULTURE INDICATED; GLUCOSE,URINE NEG (NEG); KETONE, URINE NEG (NEG); NITRITE,URINE POS (NEG); PH, URINE 7.5 (5.0-8.5); SQUAMOUS EPITHELIAL CELL URINE 3 /hpf (0-5); URINE COLOR YELLOW (YELLW/STRAW)
[2017-06-19] MEDS ORDERED: PHENYTOIN INJ 1,000 MG in SODIUM CHLORIDE 0.9% INJ 100 ML IV ONE (15:45)
[2017-06-19 15:51] LABS: ALT (GPT) 20 U/L (10-53); ANION GAP 7 MEQ/L (5-15); AST (GOT) 17 U/L (15-37); BICARBONATE 29.3 MEQ/L (21.0-32.0); BLOOD UREA NITROGEN 15 MG/DL (7-18); CHLORIDE 104 MEQ/L (98-107); GLOMERULAR FILTRATION RATE 140 ML/MIN (>89); POTASSIUM 3.8 MEQ/L (3.5-5.1); SODIUM (NA) 140 MEQ/L (136-145)
[2017-06-19 15:52] LABS: ALKALINE PHOSPHATASE 118 U/L (45-117); TOTAL BILIRUBIN ADULT 0.4 MG/DL (0.2-1.0)
[2017-06-19] MEDS ORDERED: cefTRIAXone INJ 1,000 MG in SODIUM CHLORIDE 0.9% INJ 100 ML IV ONE (17:00)
[2017-06-19] MEDS ORDERED: niCARdipine INJ 25 MG in SODIUM CHLOR 0.9% 250 ML INJ 250 ML IV ONE (17:15)
[2017-06-19] MEDS ORDERED: ACETAMINOPHEN 325 MG TAB PO PRN (17:30)
[2017-06-19] MEDS ORDERED: ACETAMINOPHEN 650 MG SUPP RECTAL PRN (17:30)
[2017-06-19] MEDS ORDERED: SODIUM CHLORIDE 0.9% FLUSH 10 ML FLUSH IVF PRN (17:30)
[2017-06-19] MEDS ORDERED: ONDANSETRON HCL 4 MG/2 ML VIAL IV PRN (17:30)
[2017-06-19] MEDS ORDERED: MAGNESIUM HYDROXIDE SUSP 30 ML CUP PO PRN (17:45)
[2017-06-19] MEDS ORDERED: TYLE325T PEG (17:58)
[2017-06-19] MEDS ORDERED: ZINC220T PEG (17:58)
[2017-06-19] MEDS ORDERED: DULC10SU3 RECTAL (17:58)
[2017-06-19] MEDS ORDERED: ZANT150T2 PEG (17:58)
[2017-06-19] MEDS ORDERED: ENEMENE5 RECTAL (17:58)
--- NOTE | 2017-06-19 18:17 | PD ---
HPI Chief Complaint: Abnormal Results Time Seen by Provider: 14:33 Travel History International Travel<30 days: No Contact w/Intl Traveler<30days: No History of Present Illness HPI This is a 72 year old female who presents to the emergency department who has a history of stroke who is at baseline aphasic, bedridden and is fed by a G-tube who lives in a alf who presents to the emergency department having had a CT scan done to follow-up on possible hydrocephalus when it was found that she had a small 1 cm lesion in the right parietal lobe which is hyperdense concerning for an intracranial hemorrhage. Her daughter reports that she thinks she's been more tired than normal. Her daughter from out of state as her dedicated power of workers compensation attorney. I spoke to both that daughter and the daughter who is at her bedside. They both concurred that the patient would not want to be resuscitated if she were to naturally in the hospital. They would not want aggressive measures for her and there would like her to be kept comfortable. They were agreeable to a DNR/DNI order. PFSH Past Medical History Arthritis: Yes Heart Rhythm Problems: No Cancer: No Cardiovascular Problems: Yes High Cholesterol: No Chest Pain: No Congestive Heart Failure: No Cerebrovascular Accident: Yes Dementia: Yes Endocrine: No Gastrointestinal Disorders: Yes GERD: Yes Genitourinary: Yes Hiatal Hernia: No Hypertension: Yes Immune Disorder: No Kidney Stones: No Musculoskeletal: Yes (CONTRACTED) Neurologic: Yes Psychiatric: Yes Reproductive: No Respiratory: No Renal Failure: No Ulcer: No Tetanus Vaccination: Unknown Influenza Vaccination: No ?: Not Past Surgical History Abdominal Surgery: Yes (PEG TUBE) Cardiac Surgery: No Ear Surgery: Yes Endocrine Surgery: No Eye Surgery: No Genitourinary Surgery: No Gynecologic Surgery: Yes (HYSTERECTOMY) Hysterectomy: Yes Neurologic Surgery: Yes Oral Surgery: No Thoracic Surgery: No Other Surgery: Yes Social History Alcohol Use: No Tobacco Use: No Substance Use: No Allergies-Medications (Allergen,Severity, Reaction): Coded Allergies: No Known Allergies (Unverified , 03/17/17) Reported Meds & Prescriptions Reported Meds & Active Scripts Active Lisinopril 10 Mg Tab 20 Mg PO Q12HR 30 Days hold for sbp less 120 Hydrocodone-Acetaminophen 5-325 mg Tab 1 Tab PEG Q4H PRN Reported Zinc Sulfate 220 Mg Tab 220 Mg PEG DAILY Zantac (Ranitidine HCl) 150 Mg Tab 150 Mg PEG DAILY Enema Disposable (Sodium Phosphates) 1 Damaris Damaris 1 Applic RECTAL IN THE AM PRN Dulcolax Supp (Bisacodyl) 10 Mg Supp 10 Mg RECTAL IN THE AM PRN Tylenol (Acetaminophen) 325 Mg Tab 650 Mg PEG Q4H PRN Milk of Magnesia Liq (Magnesium Hydroxide) 400 Mg/5 Ml Susp 30 Ml PEG HS PRN Donepezil 5 Mg Tab 5 Mg PEG HS Magnesium Citrate Liq (Magnesium Citrate) 300 Ml Liq 300 Ml PEG IN THE AM PRN Ascorbic Acid 500 Mg Tab 500 Mg PEG DAILY Amlodipine (Amlodipine Besylate) 5 Mg Tab 5 Mg PEG DAILY Review of Systems ROS Limitations: Unresponsive Physical Exam Narrative GENERAL: Chronically ill-appearing SKIN: Focused skin assessment warm and dry. HEAD: Atraumatic. Normocephalic. EYES: Pupils equal and round. No injection or drainage. ENT: Moist mucous membranes NECK: Trachea midline. CARDIOVASCULAR: Regular rate and rhythm. No murmur appreciated. RESPIRATORY: Clear to auscultation. Breath sounds equal bilaterally. GASTROINTESTINAL: Abdomen soft, non-tender, nondistended. NEUROLOGICAL: Some gaze preference to the left, right upper and right lower extremities are flaccid, patient opens eyes spontaneously but does not make sounds on my exam. Data Data Last Documented VS Vital Signs Date Time Temp Pulse Resp B/P (MAP) Pulse Ox O2 Delivery O2 Flow Rate FiO2 06/19/17 17:13 118 06/19/17 17:11 15 100 Room Air 06/19/17 14:48 97.8 Orders Orders Complete Blood Count With Diff (06/19/17 14:44) Comprehensive Metabolic Panel (06/19/17 14:44) ^ Insert Iv (06/19/17 14:44) Urinary Catheter Insert/Apply (06/19/17 14:44) Urinalysis - C+S If Indicated (06/19/17 14:44) Lorazepam Inj (Ativan Inj) (06/19/17 15:30) Lorazepam Inj (Ativan Inj) (06/19/17 15:28) Phenytoin Inj (Dilantin Inj) (06/19/17 15:45) Urine Culture (06/19/17 15:00) Ceftriaxone Inj (Rocephin Inj) (06/19/17 17:00) Nicardipine Inj (Cardene Inj) (06/19/17 17:15) Admit Order (Ed Use Only) (06/19/17 17:13) Code Status (06/19/17 17:13) Labs Laboratory Tests Test 06/19/17 15:00 White Blood Count 6.3 TH/MM3 Red Blood Count 5.52 MIL/MM3 Hemoglobin 11.8 GM/DL Hematocrit 38.4 % Mean Corpuscular Volume 69.5 FL Mean Corpuscular Hemoglobin 21.4 PG Mean Corpuscular Hemoglobin Concent 30.8 % Red Cell Distribution Width 17.9 % Platelet Count 274 TH/MM3 Mean Platelet Volume 10.1 FL Neutrophils (%) (Auto) 56.3 % Lymphocytes (%) (Auto) 33.7 % Monocytes (%) (Auto) 7.7 % Eosinophils (%) (Auto) 1.1 % Basophils (%) (Auto) 1.2 % Neutrophils # (Auto) 3.6 TH/MM3 Lymphocytes # (Auto) 2.1 TH/MM3 Monocytes # (Auto) 0.5 TH/MM3 Eosinophils # (Auto) 0.1 TH/MM3 Basophils # (Auto) 0.1 TH/MM3 CBC Comment DIFF FINAL Differential Comment Urine Color YELLOW Urine Turbidity CLOUDY Urine pH 7.5 Urine Specific [place] 1.010 Urine Protein TRACE mg/dL Urine Glucose (UA) NEG mg/dL Urine Ketones NEG mg/dL Urine Occult Blood TRACE Urine Nitrite POS Urine Bilirubin NEG Urine Urobilinogen LESS THAN 2.0 MG/DL Urine Leukocyte Esterase LARGE Urine RBC 6 /hpf Urine WBC 91 /hpf Urine Squamous Epithelial Cells 3 /hpf Urine Amorphous Sediment RARE Urine Bacteria MANY /hpf Microscopic Urinalysis Comment CULTURE INDICATED Blood Urea Nitrogen 15 MG/DL Creatinine 0.52 MG/DL Random Glucose 95 MG/DL Total Protein 8.3 GM/DL Albumin 3.4 GM/DL Calcium Level 10.2 MG/DL Alkaline Phosphatase 118 U/L Aspartate Amino Transf (AST/SGOT) 17 U/L Alanine Aminotransferase (ALT/SGPT) 20 U/L Total Bilirubin 0.4 MG/DL Sodium Level 140 MEQ/L Potassium Level 3.8 MEQ/L Chloride Level 104 MEQ/L Carbon Dioxide Level 29.3 MEQ/L Anion Gap 7 MEQ/L Estimat Glomerular Filtration Rate 140 ML/MIN [facility] Medical Decision Making Medical Screen Exam Complete: Yes Emergency Medical Condition: Yes Medical Record Reviewed: Yes (patient was admitted in February for concern for possible subarachnoid hemorrhage in the left parietal lobe.) Interpretation(s) No leukocytosis Electrolytes are reassuring Urinalysis demonstrates urinary tract infection Differential Diagnosis Intracranial hemorrhage, seizure, Urinary tract infection, pyelonephritis Narrative Course This is a 72-year-old female who is lying has a very poor functional status who presents to the emergency department having had a CT scan concerning for possible new intracranial hemorrhage. Here in the emergency department she had a 1 minute tonic-clonic seizure during which she bit her tongue. She was given 1 mg of IV Ativan and she was loaded with Dilantin. Her daughter says she's never had seizures before. Labs are obtained which demonstrate a urinary tract infection. Her Choudhury catheter was exchanged here in the emergency department. I spoke to Dr. Moore who came to see the patient at bedside. I spoke to the patient's daughters who are prioritizing comfort care and would not want that a surgical intervention or escalation of care to involve intubation or CPR. A DNR order was placed in the chart. Patient will be admitted to the intensive care unit for blood pressure and seizure management and both neurology and palliative care will be consulted. Family would still like to identify the etiology of her deterioration of possible. Critical Care Narrative Aggregate critical care time was 45 minutes. Time to perform other separately billable procedures was not included in the critical care time. My time did not include minutes spent treating any other patients simultaneously or on activities that did not directly contribute to the patient's treatment. The services I provided to this patient were to treat and/or prevent clinically significant deterioration that could result in: Disability, I provided critical care services requiring my management, as noted below: Chart data review, documentation time, medication orders and management, vital sign assessments/reviewing monitor data, ordering and reviewing lab tests, ordering and interpreting/reviewing x-rays and diagnostic studies, care of the patient and discussion of the patient with the admitting physicians. Physician Communication Physician Communication Discussed with Dr. Moore Diagnosis Primary Impression: Intraparenchymal hemorrhage of brain Admitting Information Admitting Physician Requests: it Gisella Hicks MD Jun 19, 2017 18:17
--- NOTE | 2017-06-19 18:25 | PD.CONS ---
HPI Service Critical Care Medicine Consult Requested By Primary Care Physician Barber Tucker DO History of Present Illness 72 year old female with a history of stroke who is at baseline aphasic, bedridden and is fed by a G-tube who lives in a group home presents having had a CT scan done to follow-up on possible hydrocephalus. Incidentally it was found that she had a small 1 cm lesion in the right parietal lobe which is hyperdense concerning for an intracranial hemorrhage. Per chart documentation the patient would not want to be resuscitated if she were to naturally in the hospital. The family would not want aggressive measures for her and there would like her to be kept comfortable. They were agreeable to a DNR/DNI order. Review of Systems ROS Unobtainable patient is nonverbal Past Family Social History Allergies: Coded Allergies: No Known Allergies (Unverified , 03/17/17) Past Medical History Arthritis Cerebrovascular Accident Dementia GERD Hypertension Past Surgical History PEG tube placement Hysterectomy Ear surgery Reported Medications Reported Meds & Active Scripts Active Lisinopril 10 Mg Tab 20 Mg PO Q12HR 30 Days hold for sbp less 120 Hydrocodone-Acetaminophen 5-325 mg Tab 1 Tab PEG Q4H PRN Reported Zinc Sulfate 220 Mg Tab 220 Mg PEG DAILY Zantac (Ranitidine HCl) 150 Mg Tab 150 Mg PEG DAILY Enema Disposable (Sodium Phosphates) 1 Damaris Damaris 1 Applic RECTAL IN THE AM PRN Dulcolax Supp (Bisacodyl) 10 Mg Supp 10 Mg RECTAL IN THE AM PRN Tylenol (Acetaminophen) 325 Mg Tab 650 Mg PEG Q4H PRN Milk of Magnesia Liq (Magnesium Hydroxide) 400 Mg/5 Ml Susp 30 Ml PEG HS PRN Donepezil 5 Mg Tab 5 Mg PEG HS Magnesium Citrate Liq (Magnesium Citrate) 300 Ml Liq 300 Ml PEG IN THE AM PRN Ascorbic Acid 500 Mg Tab 500 Mg PEG DAILY Amlodipine (Amlodipine Besylate) 5 Mg Tab 5 Mg PEG DAILY Active Ordered Medications Current Medications Medications (Trade) Dose Ordered Sig/Yeimy Route PRN Reason Start Time Stop Time Status Last Admin Dose Admin Ondansetron HCl (Zofran Inj) 4 mg Q6H PRN IV NAUSEA OR VOMITING 06/19/17 17:30 Acetaminophen (Tylenol) 650 mg Q4H PRN PO Temp>101F, Headache 06/19/17 17:30 Acetaminophen (Tylenol Supp) 650 mg Q4H PRN RECTAL Temp>101F, Headache 06/19/17 17:30 Sodium Chloride (NS Flush) 2 ml BID IV FLUSH 06/19/17 21:00 06/19/17 20:46 Sodium Chloride (NS Flush) 2 ml UNSCH PRN IVF FLUSH AFTER USING IV ACCESS 06/19/17 17:30 Amlodipine Besylate (Norvasc) 5 mg DAILY G-TUBE 06/20/17 09:00 Ascorbic Acid (Vitamin C) 500 mg DAILY G-TUBE 06/20/17 09:00 Donepezil HCl (Aricept) 5 mg HS G-TUBE 06/19/17 21:00 06/19/17 20:45 Acetaminophen/ Hydrocodone Bitart ([place] 5-325 Mg) 1 tab Q4H PRN PEG PAIN SCALE 1 TO 10 06/19/17 17:45 Lansoprazole (Prevacid Odt) 30 mg DAILY G-TUBE 06/20/17 09:00 Lisinopril (Prinivil) 20 mg Q12HR PO 06/19/17 21:00 06/19/17 20:46 Magnesium Hydroxide (Milk Of Inventalatorkesha Liq) 30 ml Q6H PRN PO CONSTIPATION 06/19/17 17:45 Tolterodine Tartrate (Detrol La) 2 mg DAILY PO 06/19/17 09:00 Nicardipine HCl 25 mg/Sodium Chloride 260 ml @ 52 mls/hr Q5H PRN IV Blood pressure management 06/19/17 21:28 Family History No family history of early coronary artery disease or malignancy Social History Negative for tobacco alcohol or illicit drug abuse Physical Exam Vital Signs Vital Signs Date Time Temp Pulse Resp B/P (MAP) Pulse Ox O2 Delivery O2 Flow Rate FiO2 06/19/17 18:01 93 16 148/69 (95) 100 Room Air 06/19/17 17:58 21 06/19/17 17:46 112 16 164/89 (114) 100 Room Air 06/19/17 17:13 118 06/19/17 17:11 124 15 199/95 (129) 100 Room Air 06/19/17 16:00 133 16 227/108 (147) 98 Room Air 06/19/17 14:51 95 100 06/19/17 14:48 97.8 87 14 156/80 (105) 99 Physical Exam GENERAL: Elderly debilitated woman, nonverbal lethargic SKIN: Warm and dry. HEAD: Normocephalic. EYES: No scleral icterus. No injection or drainage. NECK: Supple, trachea midline. No JVD or lymphadenopathy. CARDIOVASCULAR: Regular rate and rhythm without murmurs, gallops, or rubs. RESPIRATORY: Breath sounds equal bilaterally. No accessory muscle use. GASTROINTESTINAL: Abdomen soft, non-tender, nondistended. MUSCULOSKELETAL: No cyanosis, or edema. BACK: Nontender without obvious deformity. NEURO EXAM: GCS: M3 V1 E3 Mental Status: The patient is lethargic and nonverbal Cranial Nerves: Pupils are round, reactive to light Reflexes: Biceps, patellar, and Achilles are 2/4 bilaterally. No clonus. Laboratory Laboratory Tests Test 06/19/17 15:00 White Blood Count 6.3 Red Blood Count 5.52 Hemoglobin 11.8 Hematocrit 38.4 Mean Corpuscular Volume 69.5 Mean Corpuscular Hemoglobin 21.4 Mean Corpuscular Hemoglobin Concent 30.8 Red Cell Distribution Width 17.9 Platelet Count 274 Mean Platelet Volume 10.1 Neutrophils (%) (Auto) 56.3 Lymphocytes (%) (Auto) 33.7 Monocytes (%) (Auto) 7.7 Eosinophils (%) (Auto) 1.1 Basophils (%) (Auto) 1.2 Neutrophils # (Auto) 3.6 Lymphocytes # (Auto) 2.1 Monocytes # (Auto) 0.5 Eosinophils # (Auto) 0.1 Basophils # (Auto) 0.1 CBC Comment DIFF FINAL Differential Comment Urine Color YELLOW Urine Turbidity CLOUDY Urine pH 7.5 Urine Specific [place] 1.010 Urine Protein TRACE Urine Glucose (UA) NEG Urine Ketones NEG Urine Occult Blood TRACE Urine Nitrite POS Urine Bilirubin NEG Urine Urobilinogen LESS THAN 2.0 Urine Leukocyte Esterase LARGE Urine RBC 6 Urine WBC 91 Urine Squamous Epithelial Cells 3 Urine Amorphous Sediment RARE Urine Bacteria MANY Microscopic Urinalysis Comment CULTURE INDICATED Blood Urea Nitrogen 15 Creatinine 0.52 Random Glucose 95 Total Protein 8.3 Albumin 3.4 Calcium Level 10.2 Alkaline Phosphatase 118 Aspartate Amino Transf (AST/SGOT) 17 Alanine Aminotransferase (ALT/SGPT) 20 Total Bilirubin 0.4 Sodium Level 140 Potassium Level 3.8 Chloride Level 104 Carbon Dioxide Level 29.3 Anion Gap 7 Estimat Glomerular Filtration Rate 140 Date/Time Source Procedure Growth Status 06/19/17 15:00 Urine Clean Catch Urine Culture Pending Received Result Diagram: 06/19/17 1500 06/19/17 1500 Assessment and Plan Assessment and Plan New PROCESSOR GRAIN lesion - neuro checks in a serial fashion. - nonoperative supportive care - Keppra for prophylaxis of seizures - Management per neurosurgery Hypertension - Cardene drip - SBP goal less than 150 History of Cerebrovascular Accident - PT and OT evaluation Dementia - Supportive care GERD - Protonix DVT GI prophylaxis - Teds SCDs - No pharmacological DVT prophylaxis due to suspected ICH - Protonix Critical Care: The total critical care time was 35 minutes. Time to perform other separately billable procedures was not included in the critical care time. Mitch Contreras MD Jun 19, 2017 18:25
[2017-06-19] MEDS: DONEPEZIL HCL 5 MG TAB G-TUBE SCH (20:45)
[2017-06-19] MEDS: LISINOPRIL 20 MG TAB PO SCH (20:46)
[2017-06-19] MEDS: SODIUM CHLORIDE 0.9% FLUSH 10 ML FLUSH IV FLUSH SCH (20:46)
[2017-06-19] MEDS ORDERED: niCARdipine INJ 25 MG in SODIUM CHLOR 0.9% 250 ML INJ 250 ML IV PRN (21:28)
[2017-06-20] VITALS (15 sets, daily range): BP systolic 107–169; BP diastolic 60–95; PULSE 73–96; RESP 14–38; TEMP 98.2–99.2; O2SAT 99–100
[2017-06-20 05:01] LABS: AUTOMATED NEUTROPHIL # 4.7 TH/MM3 (1.8-7.7); BASOPHIL # 0.1 TH/MM3 (0-0.2); BASOPHIL % 0.9 % (0.0-2.0); EOSINOPHIL % 0.2 % (0.0-4.0); HEMATOCRIT 38.4 % (35.0-46.0); HEMO FLAGS DIFF FINAL; LYMPH % 15.2 % (9.0-44.0); MEAN CELL VOLUME 69.8 FL (80.0-100.0); MEAN CORPUSCULAR HEMOGLOBIN 21.8 PG (27.0-34.0); MEAN CORPUSCULAR HGB CONC 31.2 % (32.0-36.0); NEUT % 74.7 % (16.0-70.0); PLATELET COUNT 229 TH/MM3 (150-450); RED CELL DISTRIBUTION WIDTH 17.6 % (11.6-17.2); WHITE BLOOD COUNT 6.3 TH/MM3 (4.0-11.0)
[2017-06-20 05:08] LABS: PROTHROMBIN TIME - PATIENT 11.5 SEC (9.8-11.6)
[2017-06-20 05:16] LABS: ANION GAP 7 MEQ/L (5-15); AST (GOT) 16 U/L (15-37); BICARBONATE 29.4 MEQ/L (21.0-32.0); BLOOD UREA NITROGEN 14 MG/DL (7-18); CHLORIDE 105 MEQ/L (98-107); GLOMERULAR FILTRATION RATE 143 ML/MIN (>89); POTASSIUM 3.5 MEQ/L (3.5-5.1); SODIUM (NA) 141 MEQ/L (136-145)
[2017-06-20 05:17] LABS: ALT (GPT) 18 U/L (10-53)
[2017-06-20 05:19] LABS: ALKALINE PHOSPHATASE 117 U/L (45-117); TOTAL BILIRUBIN ADULT 0.4 MG/DL (0.2-1.0)
[2017-06-20] MEDS: LANSOPRAZOLE SOLUTAB 30 MG TAB G-TUBE SCH (08:59)
[2017-06-20] MEDS: amLODIPine BESYLATE 5 MG TAB G-TUBE SCH (08:59)
[2017-06-20] MEDS ORDERED: NON-FORMULARY DRUG (Solifenacin (Vesicare) 5 MG) PO SCH (09:00)
[2017-06-20] MEDS: TOLTERODINE TARTRATE 2 MG CAP LA PO SCH (09:00)
[2017-06-20] MEDS: ASCORBIC ACID 500 MG TAB G-TUBE SCH (09:00)
[2017-06-20] MEDS: SODIUM CHLORIDE 0.9% FLUSH 10 ML FLUSH IV FLUSH SCH ×2 (09:00→20:37)
[2017-06-20] MEDS: LISINOPRIL 20 MG TAB PO SCH ×2 (09:00→20:37)
--- NOTE | 2017-06-20 11:56 | EKG ---
Date Performed: 06/19/2017 Time Performed: 19:06:50 PTAGE: 72 years EKG: SINUS TACHYCARDIA WITH SHORT OR INTERVAL ABNORMAL RHYTHM ECG Compared to prior tracing no s ignificant change PREVIOUS TRACING : 09/17/2016 10.43 DOCTOR: Adin Jameson Interpretating Date/Time 06/20/2017 11:49:05
--- NOTE | 2017-06-20 11:57 | PD.CONS ---
Consult Service Palliative Care Consult Requested By Mo. Primary Care Physician Barber Tucker, DO Reason for Consultation a. To assist with evaluation and management of symptoms including: Pain and debility. b. To assist medical decision maker(s) with: better understanding of current medical conditions; weighing benefits/burdens of medical treatment options; making medical treatment decisions. . HPI History of Present Illness Mrs. Correa is a 72-year-old female with a past medical history significant for brain bleed, dementia, hypertension, seizure disorder and renal failure. Patient presented from [facility] on 06/19/17 for evaluation of parenchymal hematoma measuring 1.5 cm x 0.[address] scan. As per patient's family, patient presented more tired and sleepy which prompted future evaluation and CT scan. While in the emergency room, patient sustained a 1 minute tonic-clonic seizure, new onset. Patient with chronic indwelling urinary catheter, UA positive for leukocytes and nitrates. Choudhury catheter was replaced at ED. Laboratory workup revealing WBC 6.3, Hgb 11.8, platelet count 274. Sodium 140, potassium 3.8, BUN/creatinine 15/0.52. Albumin 3.4. LFTs within normal limits. Neurosurgery, Dr. Moore consulted. Nonsurgical support recommended. Design Consultant Dr. Contreras consulted for further management. Patient was admitted to intensive care unit. Palliative care has been consulted for further clarifications of goals of care. Patient with history of severe left frontal intraparenchymal hematoma with mass effect and midline shift status post craniotomy with evacuation of hematoma on August 2016. During that acute admission, patient required intubation and mechanical ventilation. She was medically extubated on 09/29/16. PEG tube placed on 09/25/16, cranioplasty 10/18/16. Patient reported as independent with ADLs prior to this event. She was subsequently discharged on October 23 to [facility] for long-term care. She was later transferred to the [facility] where she has been residing since. Reviewed prior medical records, ED visit on 02/28/17 secondary to PEG tube malfunction, same was replaced. ED visit on 03/16/17 for evaluation of lump over left eyebrow. She was discharged back to the [facility]. Patient seen in ICU. She was found in bed in no acute distress. Alert, nonverbal, not following any commands or attempting to communicate. Left-sided facial droop observed. Patient severely contracted. Bilateral left foot drop noted. No signs of discomfort noted. Patient afebrile, stable hemodynamically. Currently tolerating room air at 100%. Laboratory workup mostly unchanged from yesterday. Telephone conversation with patient's daughters Suad and Bee and bedside conversation with daughter Rosalia Claire who is local. Obtained past medical history and psychosocial history. Medical update provided. Reviewed events leading to this hospitalization, clinical course and current medical management. CT of the brain report provided by [facility] and discussed nonsurgical management recommendations by neurosurgery. Family tells me that their main goal at this time is patient's comfort and quality of life. Family verbalized that if bleeding continued to progressed and in the setting of no surgical interventions recommended, family considering returning patient to her long-term facility under hospice services. Family with a very good insight regarding patient's clinical condition and ongoing multiple comorbidities to include her very debilitated bedbound state at baseline. Family confirmed that patient is no code/DNR DNI. All questions have been answering great detail. Family appreciative of my visit today. Receptive to palliative care follow up. Case discussed with bedside RN Melina. . Function/Cognitive Trajectory Patient with history of hemorrhaic Brain bleed status post craniotomy on August 2016. Resident of long-term facility since discharge in October 23, 2016. At baseline, patient is bedbound, nonverbal, not following commands. Nutrition via PEG tube. Contracted with muscular atrophy noted. . Review of Systems ROS Limitations: Clinical Condition (nonverbal, not following commands. History of brain bleed.) Constitutional: COMPLAINS OF: Pain, Generalized weakness, DENIES: Fever Ears, nose, mouth, throat: DENIES: Nasal discharge, Running Nose Respiratory: DENIES: Cough, Shortness of breath Cardiovascular: DENIES: Lower Extremity Edema Gastrointestinal: DENIES: Vomiting Genitourinary: COMPLAINS OF: Urinary incontinence (chronic indwelling urinary catheter) Musculoskeletal: COMPLAINS OF: Stiffness (contracted extremities) Integumentary: DENIES: Rash Hematologic/Lymphatics: DENIES: Bruising Immunologic/Allergic: DENIES: Eczema Neurologic: COMPLAINS OF: Localized weakness, Seizures, DENIES: Tremor Psychiatric: COMPLAINS OF: Anxiety Other ROS: Limited ROS secondary to clinical condition. ROS obtained from medical records , patient's family and clinical observation. . 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 Past Surgical History Left frontotemporoparietal craniectomy evacuation of intracerebral hematoma on August 2016 Left frontaltemporalparietal cranioplasty on September 2016 PEG tube placement on 09/25/16 PEG tube replacement on 02/28/17 Hysterectomy . Reported Medications Lisinopril 10 Mg Tab 20 Mg PO Q12HR 30 Days Hydrocodone-Acetaminophen 5-325 mg Tab 1 Tab PEG Q4H PRN Zinc Sulfate 220 Mg Tab 220 Mg PEG DAILY Zantac (Ranitidine HCl) 150 Mg Tab 150 Mg PEG DAILY Enema Disposable (Sodium Phosphates) 1 Damaris Damaris 1 Applic RECTAL IN THE AM PRN Dulcolax Supp (Bisacodyl) 10 Mg Supp 10 Mg RECTAL IN THE AM PRN Tylenol (Acetaminophen) 325 Mg Tab 650 Mg PEG Q4H PRN Milk of Magnesia Liq (Magnesium Hydroxide) 400 Mg/5 Ml Susp 30 Ml PEG HS PRN Donepezil 5 Mg Tab 5 Mg PEG HS Magnesium Citrate Liq (Magnesium Citrate) 300 Ml Liq 300 Ml PEG IN THE AM PRN Ascorbic Acid 500 Mg Tab 500 Mg PEG DAILY Amlodipine (Amlodipine Besylate) 5 Mg Tab 5 Mg PEG DAILY . Current Medications Medications (Trade) Dose Ordered Sig/Yeimy Route Start Time Stop Time Status Last Admin (Zofran Inj) 4 mg Q6H PRN IV 06/19/17 17:30 (Tylenol) 650 mg Q4H PRN PO 06/19/17 17:30 (Tylenol Supp) 650 mg Q4H PRN RECTAL 06/19/17 17:30 (NS Flush) 2 ml BID IV FLUSH 06/19/17 21:00 06/20/17 09:00 (NS Flush) 2 ml UNSCH PRN IVF 06/19/17 17:30 (Norvasc) 5 mg DAILY G-TUBE 06/20/17 09:00 06/20/17 08:59 (Vitamin C) 500 mg DAILY G-TUBE 06/20/17 09:00 06/20/17 09:00 (Aricept) 5 mg HS G-TUBE 06/19/17 21:00 06/19/17 20:45 ([place] 5-325 Mg) 1 tab Q4H PRN PEG 06/19/17 17:45 (Prevacid Odt) 30 mg DAILY G-TUBE 06/20/17 09:00 06/20/17 08:59 (Prinivil) 20 mg Q12HR PO 06/19/17 21:00 06/20/17 09:00 (Milk Of Magnesia Liq) 30 ml Q6H PRN PO 06/19/17 17:45 (Detrol La) 2 mg DAILY PO 06/19/17 09:00 06/20/17 09:00 Nicardipine HCl 25 mg/Sodium Chloride 260 ml @ 52 mls/hr Q5H PRN IV 06/19/17 21:28 Family History Patient has 5 children who are alive and well. . . Substance Use Tobacco: None. Alcohol: None. Prescription med abuse: None. Illicits: None. . Psychosocial History Patient is . She has 5 children. Residing a long-term facility since September 2016. Prior to this, patient was residing with her daughter and was independent with all ADLs. . Health Care Surrogate: Completed, but not made available Health Care Surrogate(s): Pending copy of AD. As per patient's family, daughter Suad is healthcare surrogate decision maker. . Family/friends goals: DNR/DNI. Family considering hospice services at this time. . Ethical and Legal Issues No ethical or legal issues identified at this time. Physical Exam Vital Signs Date Time Temp Pulse Resp B/P (MAP) Pulse Ox O2 Delivery O2 Flow Rate FiO2 06/20/17 10:00 74 06/20/17 08:00 74 06/20/17 07:00 100 Room Air 06/20/17 07:00 76 06/20/17 06:00 73 06/20/17 04:00 78 06/20/17 04:00 98.9 78 15 107/60 (76) 99 06/20/17 02:00 77 06/20/17 00:00 98.7 83 15 129/68 (88) 99 06/20/17 00:00 74 06/19/17 23:00 78 06/19/17 23:00 80 123/72 06/19/17 22:00 80 06/19/17 21:16 89 161/76 8/24/17 20:45 90 177/83 06/19/17 20:00 99 Room Air 06/19/17 20:00 98.9 99 14 163/85 (111) 98 06/19/17 20:00 99 06/19/17 19:20 99 06/19/17 18:53 96 16 146/78 (100) 99 06/19/17 18:01 93 16 148/69 (95) 100 Room Air 06/19/17 17:58 21 06/19/17 17:46 112 16 164/89 (114) 100 Room Air 06/19/17 17:13 118 06/19/17 17:11 124 15 199/95 (129) 100 Room Air 06/19/17 16:00 133 16 227/108 (147) 98 Room Air 06/19/17 14:51 95 100 06/19/17 14:48 97.8 87 14 156/80 (105) 99 Exam CONSTITUTIONAL/GENERAL: This is an frail, elderly female in bed in no acute distress. TUBES/LINES/DRAINS: PIV's, Choudhury catheter. SKIN: No jaundice, rashes, or lesions. No wounds seen anteriorly. Skin temperature appropriate. Not diaphoretic. HEAD: Atraumatic. Normocephalic. Temporal muscle wasting bilaterally. EYES: No scleral icterus. No injection or drainage. ENT: Unable to evaluate hearing. Nose without bleeding or purulent drainage. Moist oral mucosa. NECK: Trachea midline. Supple. CARDIOVASCULAR: Regular rate and rhythm without murmurs, gallops, or rubs. No JVD. Peripheral pulses symmetric. RESPIRATORY/CHEST: Symmetric, unlabored respirations. Clear, diminished to auscultation. Breath sounds equal bilaterally. No wheezes, rales, or rhonchi. GASTROINTESTINAL: Abdomen soft, non-tender, nondistended. Bowel sounds present. PEG tube in place. GENITOURINARY: Without palpable bladder distension. Choudhury catheter in place. MUSCULOSKELETAL: Muscular atrophy in all 4 extremities. Contracted extremities. Bilateral foot drop. No mottling or clubbing. NEUROLOGICAL: Awake and alert. Eyes open, not tracking. Not following commands. Nonverbal. Left-sided facial droop noted. PSYCHIATRIC: Unable to evaluate given clinical condition. Appears calm. . Diagnostic Tests Laboratory Laboratory Tests Test 06/19/17 15:00 06/19/17 19:45 06/20/17 04:18 White Blood Count 6.3 TH/MM3 (4.0-11.0) 6.3 TH/MM3 (4.0-11.0) Red Blood Count 5.52 MIL/MM3 (4.00-5.30) 5.50 MIL/MM3 (4.00-5.30) Hemoglobin 11.8 GM/DL (11.6-15.3) 12.0 GM/DL (11.6-15.3) Hematocrit 38.4 % (35.0-46.0) 38.4 % (35.0-46.0) Mean Corpuscular Volume 69.5 FL (80.0-100.0) 69.8 FL (80.0-100.0) Mean Corpuscular Hemoglobin 21.4 PG (27.0-34.0) 21.8 PG (27.0-34.0) Mean Corpuscular Hemoglobin Concent 30.8 % (32.0-36.0) 31.2 % (32.0-36.0) Red Cell Distribution Width 17.9 % (11.6-17.2) 17.6 % (11.6-17.2) Platelet Count 274 TH/MM3 (150-450) 229 TH/MM3 (150-450) Mean Platelet Volume 10.1 FL (7.0-11.0) 10.7 FL (7.0-11.0) Neutrophils (%) (Auto) 56.3 % (16.0-70.0) 74.7 % (16.0-70.0) Lymphocytes (%) (Auto) 33.7 % (9.0-44.0) 15.2 % (9.0-44.0) Monocytes (%) (Auto) 7.7 % (0.0-8.0) 9.0 % (0.0-8.0) Eosinophils (%) (Auto) 1.1 % (0.0-4.0) 0.2 % (0.0-4.0) Basophils (%) (Auto) 1.2 % (0.0-2.0) 0.9 % (0.0-2.0) Neutrophils # (Auto) 3.6 TH/MM3 (1.8-7.7) 4.7 TH/MM3 (1.8-7.7) Lymphocytes # (Auto) 2.1 TH/MM3 (1.0-4.8) 1.0 TH/MM3 (1.0-4.8) Monocytes # (Auto) 0.5 TH/MM3 (0-0.9) 0.6 TH/MM3 (0-0.9) Eosinophils # (Auto) 0.1 TH/MM3 (0-0.4) 0.0 TH/MM3 (0-0.4) Basophils # (Auto) 0.1 TH/MM3 (0-0.2) 0.1 TH/MM3 (0-0.2) CBC Comment DIFF FINAL DIFF FINAL Differential Comment Urine Color YELLOW (YELLW/STRAW) Urine Turbidity CLOUDY (CLEAR) Urine pH 7.5 (5.0-8.5) Urine Specific [place] 1.010 (1.002-1.035) Urine Protein TRACE mg/dL (NEG-TRACE) Urine Glucose (UA) NEG mg/dL (NEG) Urine Ketones NEG mg/dL (NEG) Urine Occult Blood TRACE (NEG) Urine Nitrite POS (NEG) Urine Bilirubin NEG (NEG) Urine Urobilinogen LESS THAN 2.0 MG/DL (LESS Urine Leukocyte Esterase LARGE (NEG) Urine RBC 6 /hpf (0-3) Urine WBC 91 /hpf (0-5) Urine Squamous Epithelial Cells 3 /hpf (0-5) Urine Amorphous Sediment RARE Urine Bacteria MANY /hpf (NONE) Microscopic Urinalysis Comment CULTURE INDICATED Blood Urea Nitrogen 15 MG/DL (7-18) 14 MG/DL (7-18) Creatinine 0.52 MG/DL (0.50-1.00) 0.51 MG/DL (0.50-1.00) Random Glucose 95 MG/DL (74-106) 103 MG/DL (74-106) Total Protein 8.3 GM/DL (6.4-8.2) 7.7 GM/DL (6.4-8.2) Albumin 3.4 GM/DL (3.4-5.0) 3.1 GM/DL (3.4-5.0) Calcium Level 10.2 MG/DL (8.5-10.1) 9.9 MG/DL (8.5-10.1) Alkaline Phosphatase 118 U/L (45-117) 117 U/L (45-117) Aspartate Amino Transf (AST/SGOT) 17 U/L (15-37) 16 U/L (15-37) Alanine Aminotransferase (ALT/SGPT) 20 U/L (10-53) 18 U/L (10-53) Total Bilirubin 0.4 MG/DL (0.2-1.0) 0.4 MG/DL (0.2-1.0) Sodium Level 140 MEQ/L (136-145) 141 MEQ/L (136-145) Potassium Level 3.8 MEQ/L (3.5-5.1) 3.5 MEQ/L (3.5-5.1) Chloride Level 104 MEQ/L (98-107) 105 MEQ/L (98-107) Carbon Dioxide Level 29.3 MEQ/L (21.0-32.0) 29.4 MEQ/L (21.0-32.0) Anion Gap 7 MEQ/L (5-15) 7 MEQ/L (5-15) Estimat Glomerular Filtration Rate 140 ML/MIN (>89) 143 ML/MIN (>89) Nasal Screen MRSA (PCR) MRSA DETECTED (NOT DETECT) Prothrombin Time 11.5 SEC (9.8-11.6) Prothromb Time International Ratio 1.0 RATIO Result Diagram: 06/20/17 0418 06/20/17 0418 Microbiology Microbiology Date/Time Source Procedure Growth Status 06/19/17 15:00 Urine Clean Catch Urine Culture Pending Received Patient/Family Conference Family Conference Time (mins): 42 Family Conference Location: [facility], Telephone Issues Discussed: * Palliative care role, purpose, approach * Additional medical, psychosocial, and spiritual history * Patients general health, functional status, and cognitive changes in the months leading up to the current hospitalization * Family understanding of the current medical problems -Brain bleed with new onset of seizure activity. * Family understanding of prognosis -poor prognosis for an improved quality of life * Patients goals of care as best understood from advance directives and/or conversations and/or values * Current medical treatment options and benefits/burdens of those options * Likely scenarios comparing ongoing aggressive care with a transition to comfort measures only with hospice * Questions answered to the best of my ability * Palliative care contact information provided * Hospice philosophy and benefits . Assessment and Plan Disease Oriented Problem List: (1) Intraparenchymal hemorrhage of brain (2) New onset seizure (3) HTN (hypertension) (4) Dementia (5) Physical deconditioning Symptom Scale: (1) Pain 0-10 Scale: Unable to quantify Comment: History of arthritis. Bedbound state. (2) Debility 0-10 Scale: Unable to quantify Comment: Progressive since brain bleed in August 2016. Pertinent Non-Medical Issues Psychosocial: Patient is . She has 5 children. Residing a long-term facility since September 2016. Spiritual: No gnosticism affiliation. Legal: Advance directives completed. Pending copy. Ethical issues impacting care: Patient unable to participating in medical decision-making. Daughter Suad presented as healthcare surrogate decision maker. . Important Contacts HCS/daughter: Suad Daughter Rosalia Claire & Daughter Bee Nicholson . . Prognosis Mrs. Correa is a 72-year-old female with a past medical history significant for brain bleed, dementia, hypertension, seizure disorder and renal failure. Patient presented from [facility] on 06/19/17 for evaluation of parenchymal hematoma measuring 1.5 cm x 0.[address] scan. Neurosurgery, Dr. Moore consulted. Nonsurgical support recommended. Patient resident of long-term facility, bedbound and nonverbal at baseline. Overall prognosis is poor given advanced age, ongoing chronic comorbidities and total care status. Patient appears hospice appropriate should family elects comfort-directed care. . Code Status: No Code Plan * CODE STATUS: No code. DNR/DNI. All 3 daughters Rosalia Borjas and Bee in agreement with no code. * HEALTHCARE DECISION-MAKING: Patient unable to participating in medical decision-making given her clinical condition, nonverbal status post CVA. Patient's family reports that lawrence Borjas is healthcare surrogate decision maker, pending ad. * GOALS OF CARE: Family electing supportive care at this time. Pending imaging for reevaluation of brain bleed as discussed with neurosurgery, Dr. Moore. Family understand that follow-up imaging is not likely to change the nonsurgical medical management or overall outcome. Family considering returning patient back to long-term facility with hospice services, receptive to hospice informative visit. Referral has been made. Hospice philosophy and benefits has been introduced to family. Palliative care has spoken to 3 daughter Rosalia Borjas and Bee who are in agreement with treatment plan. * SYMPTOMS: = Pain, patient bedbound since August 2016. Resident of long- term facility. Pain likely secondary to bedbound state and history of arthritis. [place] 5/325 Q4h PRN available. = Debility, progressive since August 2016. Likely to continue to worsen. * Case has been discussed with Dr. Dubois and bedside RN Janina. * Palliative care contact information has been provided to patient's family. * Palliative care will continue to follow-up for further clarifications of goals of care as patient's clinical course continues to evolve. . Time Spent Total Floor Time (mins): 72 (Total time to include review and summarization of available medical records to include prior acute hospitalizations and ED visits , physical exam, goals of care conversation with lawrence Lindsey, telephone conversation with daughters Suad and Bee, case discussion with Dr. Dubois and bedside RN.) >50% Counseling/Coord of Care: Yes Thank you for the opportunity to participate in the care of Ms. Correa. Attestation To help prompt me to consider important information that might be impacting today's encounter and assessment, information from prior notes written by myself or my colleagues may have been "brought forward" into today's note. My signature on this note, however, is an attestation that I personally performed the exam, history, and/or decision-making noted today, and, unless otherwise indicated, the interactions with patient, family, and staff as well as the review of records all occurred today. I also attest that the listed assessment and stated plan reflect my best clinical judgment today based on the combination of historical information, prior notes, and today's exam/ interactions. When time spent is documented, it refers only to time spent today by the signer, or if indicated, combined time spent today by collaborating physician/nurse practitioner. Olivia Cho Jun 20, 2017 11:57
--- NOTE | 2017-06-20 14:49 | HHI.HP ---
History of Present Illness Service Medicine Primary Care Physician [facility] Diagnosis intracranial hemorrhage Diagnoses: History of Present Illness This is a 72 year old female who presents to the emergency department who has a history of stroke who is at baseline aphasic, bedridden and is fed by a G-tube who lives at [facility] followed by Dr. Reis who presents to the emergency department having had a CT scan done for increased debility and was found that she had a small 1 cm lesion in the right parietal lobe which is hyperdense concerning for an intracranial hemorrhage. Discussed with dtr who is at her bedside. Review of Systems Constitutional: COMPLAINS OF: Fever, Dizziness Patient unable to give ROS Past Family Social History Allergies: Coded Allergies: No Known Allergies (Unverified , 03/17/17) Past Medical History Arthritis CVA Dementia GERD HTN Past Surgical History Peg tube placement Hysterectomy ear surgery Active Ordered Medications Current Medications Medications (Trade) Dose Ordered Sig/Yeimy Route Start Time Stop Time Status Last Admin (Zofran Inj) 4 mg Q6H PRN IV 06/19/17 17:30 (Tylenol) 650 mg Q4H PRN PO 06/19/17 17:30 (Tylenol Supp) 650 mg Q4H PRN RECTAL 06/19/17 17:30 (NS Flush) 2 ml BID IV FLUSH 06/19/17 21:00 06/20/17 09:00 (NS Flush) 2 ml UNSCH PRN IVF 06/19/17 17:30 (Norvasc) 5 mg DAILY G-TUBE 06/20/17 09:00 06/20/17 08:59 (Vitamin C) 500 mg DAILY G-TUBE 06/20/17 09:00 06/20/17 09:00 (Aricept) 5 mg HS G-TUBE 06/19/17 21:00 06/19/17 20:45 ([place] 5-325 Mg) 1 tab Q4H PRN PEG 06/19/17 17:45 (Prevacid Odt) 30 mg DAILY G-TUBE 06/20/17 09:00 06/20/17 08:59 (Prinivil) 20 mg Q12HR PO 06/19/17 21:00 06/20/17 09:00 (Milk Of Magnesia Liq) 30 ml Q6H PRN PO 06/19/17 17:45 (Detrol La) 2 mg DAILY PO 06/19/17 09:00 06/20/17 09:00 Nicardipine HCl 25 mg/Sodium Chloride 260 ml @ 52 mls/hr Q5H PRN IV 06/19/17 21:28 Family History Unable to give history Social History Lives at [facility] Physical Exam Vital Signs Vital Signs Date Time Temp Pulse Resp B/P (MAP) Pulse Ox O2 Delivery O2 Flow Rate FiO2 06/20/17 14:00 93 06/20/17 12:00 74 06/20/17 10:00 74 06/20/17 08:00 74 06/20/17 07:00 100 Room Air 06/20/17 07:00 76 06/20/17 06:00 73 06/20/17 04:00 78 06/20/17 04:00 98.9 78 15 107/60 (76) 99 06/20/17 02:00 77 06/20/17 00:00 98.7 83 15 129/68 (88) 99 06/20/17 00:00 74 06/19/17 23:00 78 06/19/17 23:00 80 123/72 06/19/17 22:00 80 06/19/17 21:16 89 161/76 06/19/17 20:45 90 177/83 06/19/17 20:00 99 Room Air 06/19/17 20:00 98.9 99 14 163/85 (111) 98 06/19/17 20:00 99 06/19/17 19:20 99 06/19/17 18:53 96 16 146/78 (100) 99 06/19/17 18:01 93 16 148/69 (95) 100 Room Air 06/19/17 17:58 21 06/19/17 17:46 112 16 164/89 (114) 100 Room Air 06/19/17 17:13 118 06/19/17 17:11 124 15 199/95 (129) 100 Room Air 06/19/17 16:00 133 16 227/108 (147) 98 Room Air 06/19/17 14:51 95 100 06/19/17 14:48 97.8 87 14 156/80 (105) 99 Physical Exam CONSTITUTIONAL/GENERAL: This is an frail, elderly female in bed in no acute distress. TUBES/LINES/DRAINS: PIV's, Choudhury catheter. SKIN: No jaundice, rashes, or lesions. No wounds seen anteriorly. Skin temperature appropriate. Not diaphoretic. Per DTR excoriation on buttocks HEAD: Atraumatic. Normocephalic. EYES: No scleral icterus. No injection or drainage. ENT: Unable to evaluate hearing. Nose without bleeding or purulent drainage. Moist oral mucosa. NECK: Trachea midline. Supple. CARDIOVASCULAR: Regular rate and rhythm without murmurs, gallops, or rubs. No JVD. Peripheral pulses symmetric. RESPIRATORY/CHEST: Symmetric, unlabored respirations. Clear, diminished to auscultation. Breath sounds equal bilaterally. No wheezes, rales, or rhonchi. GASTROINTESTINAL: Abdomen soft, non-tender, nondistended. Bowel sounds present. PEG tube in place. GENITOURINARY: Without palpable bladder distension. Choudhury catheter in place. MUSCULOSKELETAL: Muscular atrophy in all 4 extremities. Contracted extremities. Bilateral foot drop. No mottling or clubbing. NEUROLOGICAL: Awake and alert. Eyes open, not tracking. Not following commands. Nonverbal. Left-sided facial droop noted. Laboratory Laboratory Tests Test 06/19/17 15:00 06/19/17 19:45 06/20/17 04:18 White Blood Count 6.3 6.3 Red Blood Count 5.52 5.50 Hemoglobin 11.8 12.0 Hematocrit 38.4 38.4 Mean Corpuscular Volume 69.5 69.8 Mean Corpuscular Hemoglobin 21.4 21.8 Mean Corpuscular Hemoglobin Concent 30.8 31.2 Red Cell Distribution Width 17.9 17.6 Platelet Count 274 229 Mean Platelet Volume 10.1 10.7 Neutrophils (%) (Auto) 56.3 74.7 Lymphocytes (%) (Auto) 33.7 15.2 Monocytes (%) (Auto) 7.7 9.0 Eosinophils (%) (Auto) 1.1 0.2 Basophils (%) (Auto) 1.2 0.9 Neutrophils # (Auto) 3.6 4.7 Lymphocytes # (Auto) 2.1 1.0 Monocytes # (Auto) 0.5 0.6 Eosinophils # (Auto) 0.1 0.0 Basophils # (Auto) 0.1 0.1 CBC Comment DIFF FINAL DIFF FINAL Differential Comment Urine Color YELLOW Urine Turbidity CLOUDY Urine pH 7.5 Urine Specific [place] 1.010 Urine Protein TRACE Urine Glucose (UA) NEG Urine Ketones NEG Urine Occult Blood TRACE Urine Nitrite POS Urine Bilirubin NEG Urine Urobilinogen LESS THAN 2.0 Urine Leukocyte Esterase LARGE Urine RBC 6 Urine WBC 91 Urine Squamous Epithelial Cells 3 Urine Amorphous Sediment RARE Urine Bacteria MANY Microscopic Urinalysis Comment CULTURE INDICATED Blood Urea Nitrogen 15 14 Creatinine 0.52 0.51 Random Glucose 95 103 Total Protein 8.3 7.7 Albumin 3.4 3.1 Calcium Level 10.2 9.9 Alkaline Phosphatase 118 117 Aspartate Amino Transf (AST/SGOT) 17 16 Alanine Aminotransferase (ALT/SGPT) 20 18 Total Bilirubin 0.4 0.4 Sodium Level 140 141 Potassium Level 3.8 3.5 Chloride Level 104 105 Carbon Dioxide Level 29.3 29.4 Anion Gap 7 7 Estimat Glomerular Filtration Rate 140 143 Nasal Screen MRSA (PCR) MRSA DETECTED Prothrombin Time 11.5 Prothromb Time International Ratio 1.0 Date/Time Source Procedure Growth Status 06/19/17 15:00 Urine Clean Catch Urine Culture - Preliminary Gram Negative Pro Resulted Result Diagram: 06/20/17 0418 06/20/17 0418 Caprini VTE Risk Assessment Caprini VTE Risk Assessment: Mod/High Risk (score >= 2) VTE Pharm Contraindication: Hemorrhage Caprini Risk Assessment Model Point Value = 1 Point Value = 2 Point Value = 3 Point Value = 5 Age 41-60 Minor surgery BMI > 25 kg/m2 Swollen legs Varicose veins or History of unexplained or recurrent spontaneous Oral contraceptives or hormone replacement Sepsis (< 1 month) Serious lung disease, including pneumonia (< 1 month) Abnormal pulmonary function Acute myocardial infarction Congestive heart failure (< 1 month) History of inflammatory bowel disease Medical patient at bed rest Age 61-74 Arthroscopic surgery Major open surgery (> 45 min) Laparoscopic surgery (> 45 min) Malignancy Confined to bed (> 72 hours) Immobilizing plaster cast Central venous access Age >= 75 History of VTE Family history of VTE Factor V Leiden Prothrombin [id number] Lupus anticoagulant Anticardiolipin antibodies Elevated serum homocysteine Heparin-induced thrombocytopenia Other congenital or acquired thrombophilia Stroke (< 1 month) Elective arthroplasty Hip, pelvis, or leg fracture Acute spinal cord injury (< 1 month) Prophylaxis Regimen Total Risk Factor Score Risk Level Prophylaxis Regimen 0-1 Low Early ambulation 2 Moderate Order ONE of the following: *Sequential Compression Device (SCD) *Heparin 5000 units SQ BID 3-4 Higher Order ONE of the following medications: *Heparin 5000 units SQ TID *Enoxaparin/Lovenox 40 mg SQ daily (WT < 150 kg, CrCl > 30 mL/min) *Enoxaparin/Lovenox 30 mg SQ daily (WT < 150 kg, CrCl > 10-29 mL/min) *Enoxaparin/Lovenox 30 mg SQ BID (WT < 150 kg, CrCl > 30 mL/min) AND/OR *Sequential Compression Device (SCD) 5 or more Highest Order ONE of the following medications: *Heparin 5000 units SQ TID (Preferred with Epidurals) *Enoxaparin/Lovenox 40 mg SQ daily (WT < 150 kg, CrCl > 30 mL/min) *Enoxaparin/Lovenox 30 mg SQ daily (WT < 150 kg, CrCl > 10-29 mL/min) *Enoxaparin/Lovenox 30 mg SQ BID (WT < 150 kg, CrCl > 30 mL/min) AND *Sequential Compression Device (SCD) Assessment and Plan Problem List: (1) Intraparenchymal hemorrhage of brain ICD Codes: I61.9 - Nontraumatic intracerebral hemorrhage, unspecified Status: Acute (2) Dementia ICD Codes: F03.90 - Unspecified dementia without behavioral disturbance (3) Debility ICD Codes: R53.81 - Other malaise (4) HTN (hypertension) ICD Codes: I10 - Essential (primary) hypertension Status: Acute (5) New onset seizure ICD Codes: R56.9 - Unspecified convulsions Assessment and Plan 06/20/17 Intraparenchymal hemorrhage- Patient is patient at [facility]. Has been none verbal and peg tube for feedings. Neuro checks and Keppra for seizure prevention. Neurosurgery evaluated in ER nonoperative supportive care. Neurology consulted. Hypertension- Continue current therapy B/P well controlled. SBP goal less than 150 mmhg GERD- Protonix. Palliative care consult Labs in AM I and the ELEMENTARY EDUCATOR have both examined this patient and reviewed this note and I agree with these findings and plan of care. Vivian Sheppard [facility] Jun 20, 2017 14:49
--- NOTE | 2017-06-20 14:54 | HHI.NSPN ---
Note Status Status: Progress Note Interval History Interval History This is a 72 year old female who was brought to [place] emergency department with altered mental status. She has history of prior ICH and a prior craniotomy in 2016. She had a hemorrhagic stroke and she is at baseline aphasic. In addition nshe is bedridden and is fed by a G-tube. She is a resident [facility], followed by Dr. Reis. She was taken to the emergency department having had a CT scan done for increased generalized weakness and lethargy. She was seen at [facility] ER and a CT scan showed a 1 cm lesion in the right parietal lobe which is hyperdense concerning for an intracranial hemorrhage. Upon presentation to [facility] ER she was hemodynamically stable. She had a generalized tonic clonic seizure. No tongue bitting. No incontinence of stool. No incontinence of urine. she was given anticonvulsants 06/20. Neurologically stable. No further seizures. Follow up CT brain done today Labs, Micro, & Vital Signs Results Date Time Temp Pulse Resp B/P (MAP) Pulse Ox O2 Delivery O2 Flow Rate FiO2 06/20/17 14:00 93 06/20/17 12:00 74 06/20/17 10:00 74 06/20/17 08:00 74 06/20/17 07:00 100 Room Air 06/20/17 07:00 76 06/20/17 06:00 73 06/20/17 04:00 78 06/20/17 04:00 98.9 78 15 107/60 (76) 99 06/20/17 02:00 77 06/20/17 00:00 98.7 83 15 129/68 (88) 99 06/20/17 00:00 74 06/19/17 23:00 78 06/19/17 23:00 80 123/72 06/19/17 22:00 80 06/19/17 21:16 89 161/76 06/19/17 20:45 90 177/83 06/19/17 20:00 99 Room Air 06/19/17 20:00 98.9 99 14 163/85 (111) 98 06/19/17 20:00 99 06/19/17 19:20 99 06/19/17 18:53 96 16 146/78 (100) 99 06/19/17 18:01 93 16 148/69 (95) 100 Room Air 06/19/17 17:58 21 06/19/17 17:46 112 16 164/89 (114) 100 Room Air 06/19/17 17:13 118 06/19/17 17:11 124 15 199/95 (129) 100 Room Air 06/19/17 16:00 133 16 227/108 (147) 98 Room Air Constitutional Vital Signs Date Time Temp Pulse Resp B/P (MAP) Pulse Ox O2 Delivery O2 Flow Rate FiO2 06/20/17 14:00 93 06/20/17 12:00 74 06/20/17 10:00 74 06/20/17 08:00 74 06/20/17 07:00 100 Room Air 06/20/17 07:00 76 06/20/17 06:00 73 06/20/17 04:00 78 06/20/17 04:00 98.9 78 15 107/60 (76) 99 06/20/17 02:00 77 06/20/17 00:00 98.7 83 15 129/68 (88) 99 06/20/17 00:00 74 06/19/17 23:00 78 06/19/17 23:00 80 123/72 06/19/17 22:00 80 06/19/17 21:16 89 161/76 06/19/17 20:45 90 177/83 06/19/17 20:00 99 Room Air 06/19/17 20:00 98.9 99 14 163/85 (111) 98 06/19/17 20:00 99 06/19/17 19:20 99 06/19/17 18:53 96 16 146/78 (100) 99 06/19/17 18:01 93 16 148/69 (95) 100 Room Air 06/19/17 17:58 21 06/19/17 17:46 112 16 164/89 (114) 100 Room Air 06/19/17 17:13 118 06/19/17 17:11 124 15 199/95 (129) 100 Room Air 06/19/17 16:00 133 16 227/108 (147) 98 Room Air Physical Exam Neurological examination. She open eyes to voice and spontaneoulsy , aphasic. Cranial nerve examination: pupils to be equal, round and reactive to light. Extra-ocular movements shows mild gaze preference but conjugated. No papiledema Right facial supranuclear droop and decreased sensory function on the right. Gross hearing appears intact. Sternocleidomastoid and trapezius muscles are symmetrical. Other cranial nerves are intact. Neck is soft and supple with a good range of motion without pain. Muscle strength right spastic hemiplegia, moves purposfully left side Sensory examination is intact to pin prick in left upper and lower extremities , decreased on right. Unable to assess light touch Deep tendon reflexes are 3+ on the right. Right Babinsky, left plantar flexion response. Cerebellar examination can not be assessed due to her neurological condition Attending Statement Neuro. continue Continue neuro checks in a serial fashion. I reviewed her follow up CT brain. Continue nonoperative supportive care. I have discussed the case with her daughter. She requested paliative care consultation Continue Antihypertensives to keep her blood pressure controlled Continue Keppra for prophylaxis of seizures. Neurology consultation. EEG Pulmonary. Continue pulmonary toilette, nasotracheal suction, and breathing treatments with nebulizers. Renal. Continue to monitor closely urine output, BUN and creatinine Endocrine. continue to Monitor serial Acu checks and SSI as needed ID continue to monitor for signs of infection continue Protonix for stress ulcer prophylaxis continue Jero ventura and SCD's for DVT prophylaxis Blaise Moore MD Jun 20, 2017 14:54
[2017-06-20] MEDS: ENALAPRILAT 1.25 MG/ML VIAL IV PUSH PRN (15:44)
--- NOTE | 2017-06-20 16:31 | HHI.CCPN ---
Subjective Remarks/Hospital Course 06/19: 72 year old female with a history of stroke who is at baseline aphasic, bedridden and is fed by a G-tube who lives in a assisted presents having had a CT scan done to follow-up on possible hydrocephalus. Incidentally it was found that she had a small 1 cm lesion in the right parietal lobe which is hyperdense concerning for an intracranial hemorrhage. Per chart documentation the patient would not want to be resuscitated if she were to naturally in the hospital. The family would not want aggressive measures for her and there would like her to be kept comfortable. They were agreeable to a DNR/DNI order. 06/20: Resting in bed comfortably. Encephalopathic, does not appear to be in any acute distress. Objective Vital Signs Date Time Temp Pulse Resp B/P (MAP) Pulse Ox O2 Delivery O2 Flow Rate FiO2 06/20/17 14:00 93 06/20/17 12:00 98.3 14 109/79 (89) 100 06/20/17 09:05 21 06/20/17 07:00 Room Air Intake and Output 06/20/17 06/20/17 06/20/17 07:59 15:59 23:59 Intake Total 138 ml Output Total 500 ml Balance -362 ml Result Diagram: 06/20/17 0418 06/20/17 0418 Objective Remarks GENERAL: Elderly debilitated woman, nonverbal lethargic SKIN: Warm and dry. HEAD: Normocephalic. EYES: No scleral icterus. No injection or drainage. NECK: Supple, trachea midline. No JVD or lymphadenopathy. CARDIOVASCULAR: Regular rate and rhythm without murmurs, gallops, or rubs. RESPIRATORY: Breath sounds equal bilaterally. No accessory muscle use. GASTROINTESTINAL: Abdomen soft, non-tender, nondistended. MUSCULOSKELETAL: No cyanosis, or edema. BACK: Nontender without obvious deformity. NEURO EXAM: GCS: M3 V1 E3 Mental Status: The patient is lethargic and nonverbal Cranial Nerves: Pupils are round, reactive to light Reflexes: Biceps, patellar, and Achilles are 2/4 bilaterally. No clonus. 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 - nonoperative supportive care - Keppra for prophylaxis of seizures - Management per neurosurgery Hypertension - Cardene drip if needed. - SBP goal less than 150 History of Cerebrovascular Accident - PT and OT evaluation Dementia - Supportive care GERD - Protonix DVT GI prophylaxis - Teds SCDs - No pharmacological DVT prophylaxis due to suspected ICH - Protonix Palliative care team following. Patient is DNR/DNI status at this time. Family does not want any aggressive measures at this time. Further recommendations per neurosurgery. Critical care will be available as needed. Chris Dubois MD Jun 20, 2017 16:31
[2017-06-20] MEDS: ACETAMINOPHEN/HYDROcodone 325 MG/5 MG TAB PEG PRN (17:18)
--- NOTE | 2017-06-20 17:20 | RADRPT ---
EXAM DATE/TIME: 06/20/2017 16:52 [place] COMPARISON: CT BRAIN W/O CONTRAST, March 16, 2017, 19:35. INDICATIONS : Intracranial hemorrhage. RADIATION DOSE: 56.45 CTDIvol (mGy) MEDICAL HISTORY : Stroke. Seizures. Hypertension. SURGICAL HISTORY : Craniotomy. ENCOUNTER: Initial ACUITY: 1 day PAIN SCALE: Non-responsive LOCATION: cranial TECHNIQUE: Multiple contiguous axial images were obtained of the head. Using automated exposure control and adj ustment of the mA and/or kV according to patient size, radiation dose was kept as low as reasonably a chievable to obtain optimal diagnostic quality images. DICOM format image data is available electro nically for review and comparison. FINDINGS: There has been prior left frontal craniotomy. Severe relatively diffuse atrophy is present. There is a large area of encephalomalacia involving the left cerebrum and there is an associated expected dila tation of the left lateral ventricle. Ventricles are stable in size. There is severe periventricular white matter low attenuation. Nonspecific area of high density is present in the right parietal subco rtical white matter measuring 14 mm. There is low-density in the left jennifer and cerebral peduncle, sta ble from the prior study. There is stable right to left midline shift measuring 5 mm. No downward her niation is present. Visualized sinuses are clear. CONCLUSION: 1. Nonspecific 14 mm area of high density in the subcortical white matter of the right parietal lobe. Could represent an area of contusion or acute hemorrhage from an uncertain etiology. New finding fro m the prior study. Suggest followup to confirm resolution. 2. Otherwise, stable chronic changes including severe left cerebral atrophy with a stable dilatation of the lateral ventricles, left larger than right. There is also stable severe periventricular white matter change representing chronic microvascular ischemia. Bal Robins MD on June 20, 2017 at 17:14 Board Certified Radiologist. This report was verified electronically.
--- NOTE | 2017-06-20 18:13 | MB ---
cc: CARL RAMÍREZ MD DATE OF CONSULTATION: 06/20/2017 REASON FOR CONSULTATION: 'Critical parietal punctate lesion and seizure in the emergency department.' HISTORY OF PRESENT ILLNESS: Ms. Correa is a 72-year-old -[place] female with past medical history of intraparenchymal bleed, dementia, hypertension, seizure disorder and renal failure. The patient at baseline is dysphasic status post stroke, at the bedside as her friend and caregiver who by the medical history was partially obtained from and the rest was from the medical records. The patient presented from [facility] on 06/19 for an evaluation for an abnormal finding on Head CT scan of her parenchymal hematoma measuring 1.5 x 0.8. The patient was noted by the family to be more tired and sleepy. At baseline she opens her eyes and tracks objects but she does not communicate and she has spastic weakness on the right side that is chronic, status post previous stroke. While she was in the ER at [facility] the patient was witnessed to sustain a 1 minute tonic-clonic seizure. This is a new onset episode.She also was found to have a positive urine for leukocytes and nitrates,she has chronic indwelling catheter. The patient had history of left frontal intraparenchymal hematoma with mass affect midline shift s/p tracheotomy with evacuation of hematoma in August 2016, when she was intubated and mechanically ventilated. A percutaneous endoscopic gastrostomy tube was placed in August 2016 and cranioplasty was done September 2016. She resides in a long-term facility with rehabilitation. REVIEW OF SYSTEMS A 12-point review of systems is negative except for what is stated in the HPI. This was obtained from medical records. PAST MEDICAL HISTORY Obtained from medical records arthritis stroke dementia. Gastroesophageal reflux disease Hypertension Intracranial hematoma status post evacuation and craniotomy flap PAST SURGICAL HISTORY Percutaneous endoscopic gastrostomy tube placement hysterectomy Craniotomy ALLERGIES NO KNOWN DRUG ALLERGIES MEDICATIONS Lisinopril Hydrocodone Zantac Dulcolax Tylenol FAMILY HISTORY Unable to obtain. SOCIAL HISTORY Unable to obtain,negative for tobacco, alcohol or illicit drug as per medical records review PHYSICAL EXAMINATION IN GENERAL: Elderly debilitated woman nonverbal dysphasic lethargic. HEAD, EYES, EARS, NOSE,&THROAT: Head tilt to the right, gaze to the right, atraumatic. NECK: Supple. No signs of meningeal irritation. CARDIOVASCULAR SYSTEM: Regular rate and rhythm. RESPIRATORY: Clear to auscultation. No wheezes GASTROINTESTINAL: Soft abdomen nontender. NEUROLOGIC: Awake, not alert, not oriented, dysphasic right spastic weakness, right facial palsy, mild gaze preference and deviation, spontaneous eye opening. Plantar's right upgoing, left downgoing. Brisk reflexes on the right side normal on the left side. LABORATORY DATA white blood cells 6.3, hemoglobin 12, MCV 69.8, platelet count 229, sodium 141, potassium 3.5, anion gap 7, calcium 9.9, BUN, creatinine 14.51, LFT within normal. Urine, trace of occult blood, nitrite positive, large leukocyte esterase DIAGNOSTICS/IMAGING STUDIES - Head CT scan was done and [facility] revealed a 1.5 cm hyper attenuation focus with possible surrounding edema within the right superior parietal lobe findings may be may represent a small parenchymal hematoma. Postsurgical changes of left temporal parietal craniotomy with multifocal underlying left MCA territory encephalomalacia [id number] global parenchymal volume loss. DIAGNOSTIC IMPRESSION 1. New onset seizure. 2. History of intraparenchymal hemorrhage status post left craniotomy. 3. Recent onset questionable right parietal hematoma. 4. History of hypertension. 5. Dementia. 6. Dysphagia status post stroke. PLAN 1. I discussed the clinical and neurological status with the caregiver and friend who was at the bedside and she could not touch base with her daughter who is a local to fill her in with the current neurological status. 2. Continue supportive care. 3. Keppra 500 mg twice daily 4. Supportive medical care. 5. Elevation of head of bed. 6. Hold anticoagulation and antiplatelet. 7. Maintain blood pressure between 130-135/75-80. 8. Seizure prophylaxis. 9. EEG 10. I discussed the case with the registered nurse and the patients friend / caregiver. 11. Consult palliative care. Thank you for the opportunity to participate in the care of the patient. MD SIVAN Wang/yamini /2:02 PM /5:51 PM ANKUR
[2017-06-20] MEDS: DONEPEZIL HCL 5 MG TAB G-TUBE SCH (20:37)
[2017-06-21] VITALS (9 sets, daily range): BP systolic 132–153; BP diastolic 68–86; PULSE 77–101; RESP 15–17; TEMP 98.4–99.6; O2SAT 97–99
[2017-06-21] MEDS: ENALAPRILAT 1.25 MG/ML VIAL IV PUSH PRN (00:28)
[2017-06-21] MEDS: ACETAMINOPHEN/HYDROcodone 325 MG/5 MG TAB PEG PRN (02:57)
[2017-06-21] MEDS: TOLTERODINE TARTRATE 2 MG CAP LA PO SCH (08:07)
[2017-06-21] MEDS: ASCORBIC ACID 500 MG TAB G-TUBE SCH (08:08)
[2017-06-21] MEDS: amLODIPine BESYLATE 5 MG TAB G-TUBE SCH (08:08)
[2017-06-21] MEDS: LANSOPRAZOLE SOLUTAB 30 MG TAB G-TUBE SCH (08:09)
[2017-06-21] MEDS: LISINOPRIL 20 MG TAB PO SCH (08:09)
[2017-06-21] MEDS: SODIUM CHLORIDE 0.9% FLUSH 10 ML FLUSH IV FLUSH SCH (08:10)
--- NOTE | 2017-06-21 16:43 | HHI.DS ---
Discharge Summary Admission Date Jun 19, 2017 at 17:14 Admitting Diagnosis intracranial hemorrhage (1) Intraparenchymal hemorrhage of brain ICD Codes: I61.9 - Nontraumatic intracerebral hemorrhage, unspecified Status: Acute CBC/BMP: 06/20/17 0418 06/20/17 0418 Significant Findings Laboratory Tests Test 06/19/17 15:00 06/19/17 19:45 06/20/17 04:18 Red Blood Count 5.52 MIL/MM3 (4.00-5.30) 5.50 MIL/MM3 (4.00-5.30) Mean Corpuscular Volume 69.5 FL (80.0-100.0) 69.8 FL (80.0-100.0) Mean Corpuscular Hemoglobin 21.4 PG (27.0-34.0) 21.8 PG (27.0-34.0) Mean Corpuscular Hemoglobin Concent 30.8 % (32.0-36.0) 31.2 % (32.0-36.0) Red Cell Distribution Width 17.9 % (11.6-17.2) 17.6 % (11.6-17.2) Urine Turbidity CLOUDY (CLEAR) Urine Occult Blood TRACE (NEG) Urine Nitrite POS (NEG) Urine Leukocyte Esterase LARGE (NEG) Urine RBC 6 /hpf (0-3) Urine WBC 91 /hpf (0-5) Urine Bacteria MANY /hpf (NONE) Total Protein 8.3 GM/DL (6.4-8.2) Calcium Level 10.2 MG/DL (8.5-10.1) Alkaline Phosphatase 118 U/L (45-117) Neutrophils (%) (Auto) 74.7 % (16.0-70.0) Monocytes (%) (Auto) 9.0 % (0.0-8.0) Albumin 3.1 GM/DL (3.4-5.0) Pt Condition on Discharge: Deteriorating Discharge Disposition: Hospice/Med Facility Discharge Instructions DIET: Follow Instructions for: On Tube Feeding Activities you can perform: Continue Bedrest Additional Activity Instructio: discharge to snf with hospice care Additional Information pt with new right parietal hcva will dc [facility] hosp[facility] at [facility] continue tube feedings Barber Tucker DO Jun 21, 2017 16:43
--- NOTE | 2017-06-21 18:15 | HHI.NSPN ---
Note Status Status: Progress Note Interval History Interval History This is a 72 year old female who was brought to [facility] emergency department with altered mental status. She has history of prior ICH and a prior craniotomy in 2016. She had a hemorrhagic stroke and she is at baseline aphasic. In addition nshe is bedridden and is fed by a G-tube. She is a resident [facility], followed by Dr. Reis. She was taken to the emergency department having had a CT scan done for increased generalized weakness and lethargy. She was seen at [facility] ER and a CT scan showed a 1 cm lesion in the right parietal lobe which is hyperdense concerning for an intracranial hemorrhage. Upon presentation to [facility] ER she was hemodynamically stable. She had a generalized tonic clonic seizure. No tongue bitting. No incontinence of stool. No incontinence of urine. she was given anticonvulsants 06/20. Neurologically stable. No further seizures 06/21. No new issues. Seuizures are controlled. CT scan from yesterday reviewed and discussed findings with her daughter. Labs, Micro, & Vital Signs Results Date Time Temp Pulse Resp B/P (MAP) Pulse Ox O2 Delivery O2 Flow Rate FiO2 06/21/17 16:00 99.0 89 16 134/80 (98) 98 06/21/17 12:52 89 06/21/17 12:00 99.5 95 17 153/75 (101) 99 06/21/17 08:00 99.1 93 16 146/69 (94) 98 06/21/17 05:03 85 06/21/17 03:45 98.4 77 15 132/68 (89) 97 06/21/17 01:50 90 152/78 (102) 06/21/17 01:40 99.6 101 16 153/86 (108) 97 06/21/17 00:20 101 153/86 (108) 06/20/17 22:00 86 06/20/17 20:30 140/81 (100) 06/20/17 20:00 96 06/20/17 20:00 100 Room Air 06/20/17 20:00 99.2 96 24 169/95 (119) 100 Constitutional Vital Signs Date Time Temp Pulse Resp B/P (MAP) Pulse Ox O2 Delivery O2 Flow Rate FiO2 06/21/17 16:00 99.0 89 16 134/80 (98) 98 06/21/17 12:52 89 06/21/17 12:00 99.5 95 17 153/75 (101) 99 06/21/17 08:00 99.1 93 16 146/69 (94) 98 06/21/17 05:03 85 06/21/17 03:45 98.4 77 15 132/68 (89) 97 06/21/17 01:50 90 152/78 (102) 06/21/17 01:40 99.6 101 16 153/86 (108) 97 06/21/17 00:20 101 153/86 (108) 06/20/17 22:00 86 06/20/17 20:30 140/81 (100) 06/20/17 20:00 96 06/20/17 20:00 100 Room Air 06/20/17 20:00 99.2 96 24 169/95 (119) 100 Physical Exam Ms Correa open eyes to coice, aphasic. Appears comfortable Cranial nerve examination: pupils to be equal, round and reactive to light. Extra-ocular movements shows mild gaze preference but conjugated. No papiledema Right facial supranuclear droop and decreased sensory function on the right. Gross hearing appears intact. Sternocleidomastoid and trapezius muscles are symmetrical. Other cranial nerves are intact. Neck is soft and supple with a good range of motion without pain. Muscle strength right spastic hemiplegia, moves purposfully left side Sensory examination is intact to pin prick in left upper and lower extremities , decreased on right. Unable to assess light touch Deep tendon reflexes are 3+ on the right. Right Babinsky, left plantar flexion response. Cerebellar examination can not be assessed due to her neurological condition Medications Current Medications Current Medications Lorazepam (Ativan Inj) 2 mg ONCE ONCE IM Last administered on 06/19/17t 15:34 ; Start 06/19/17 at 15:30; Stop 06/19/17 at 15:31; Status DC Lorazepam (Ativan Inj) 2 mg STK-MED ONCE .ROUTE ; Start 06/19/17 at 15:28; Stop 06/19/17 at 15:29; Status DC Phenytoin Sodium 1000 mg/Sodium Chloride 120 ml @ 288 mls/hr ONCE ONCE IV Last administered on 06/19/17 17:09; Start 06/19/17 at 15:45; Stop 06/19/17 at 16:09; Status DC Ceftriaxone Sodium 1000 mg/ Sodium Chloride 100 ml @ 200 mls/hr ONCE ONCE IV Last administered on 06/19/17 17:58; Start 06/19/17 at 17:00; Stop 06/19/17 at 17:29; Status DC Nicardipine HCl 25 mg/Sodium Chloride 260 ml @ 0 mls/hr TITRATE ONCE IV Last administered on 06/19/17 20:45; Start 06/19/17 at 17:15; Stop 06/19/17 at 17:16 ; Status DC Ondansetron HCl (Zofran Inj) 4 mg Q6H PRN IV NAUSEA OR VOMITING; Start at 17:30 Acetaminophen (Tylenol) 650 mg Q4H PRN PO Temp>101F, Headache; Start 06/19/17 at 17:30 Acetaminophen (Tylenol Supp) 650 mg Q4H PRN RECTAL Temp>101F, Headache; Start 06/19/17 at 17:30 Sodium Chloride (NS Flush) 2 ml BID IV FLUSH Last administered on 06/21/17 08: 10; Start 06/19/17 at 21:00 Sodium Chloride (NS Flush) 2 ml UNSCH PRN IVF FLUSH AFTER USING IV ACCESS; Start 06/19/17 at 17:30 Amlodipine Besylate (Norvasc) 5 mg DAILY G-TUBE Last administered on 06/21/17 08:08; Start 06/20/17 at 09:00 Ascorbic Acid (Vitamin C) 500 mg DAILY G-TUBE Last administered on 06/21/17 08 :08; Start 06/20/17 at 09:00 Donepezil HCl (Aricept) 5 mg HS G-TUBE Last administered on 06/20/17 20:37; Start 06/19/17 at 21:00 Acetaminophen/ Hydrocodone Bitart ([place] 5-325 Mg) 1 tab Q4H PRN PEG PAIN SCALE 1 TO 10 Last administered on 06/21/17 02:57; Start 8/24/17 at 17:45 Lansoprazole (Prevacid Odt) 30 mg DAILY G-TUBE Last administered on 06/21/17 08:09; Start 06/20/17 at 09:00 Lisinopril (Prinivil) 20 mg Q12HR PO Last administered on 06/21/17 08:09; Start 06/19/17 at 21:00 Magnesium Hydroxide (Milk Of Magnesia Liq) 30 ml Q6H PRN PO CONSTIPATION; Start 06/19/17 at 17:45 Non-Formulary Medication 5 mg DAILY PO ; Start 06/20/17 at 09:00; Status UNV Tolterodine Tartrate (Detrol La) 2 mg DAILY PO Last administered on 06/21/17 08:07; Start 06/19/17 at 09:00 Nicardipine HCl 25 mg/Sodium Chloride 260 ml @ 52 mls/hr Q5H PRN IV Blood pressure management; Start 06/19/17 at 21:28 Enalaprilat (Vasotec Inj) 1.25 mg Q6H PRN IV PUSH SBP>150, DBP>90 Last administered on 06/21/17 00:28; Start 06/20/17 at 15:00 Medical Decision Making MDM Remarks Last Impressions Head CT 06/20/17 0000 Signed Impressions: Service Date/Time: Tuesday, June 20, 2017 16:52 - CONCLUSION: 1. Nonspecific 14 mm area of high density in the subcortical white matter of the right parietal lobe. Could represent an area of contusion or acute hemorrhage from an uncertain etiology. New finding from the prior study. Suggest followup to confirm resolution. 2. Otherwise, stable chronic changes including severe left cerebral atrophy with a stable dilatation of the lateral ventricles, left larger than right. There is also stable severe periventricular white matter change representing chronic microvascular ischemia. Bal Robins MD Attending Statement Neuro. Stable, CT scan from yesterday reviewed and discussed findings with her daughter,.paliative care consultation noted. She will go for hospice care Continue Antihypertensives to keep her blood pressure controlled Continue Keppra for prophylaxis of seizures. Pulmonary. Continue pulmonary toilette, nasotracheal suction, and breathing treatments with nebulizers. Renal. Continue to monitor closely urine output, BUN and creatinine Endocrine. continue to Monitor serial Acu checks and SSI as needed in detail ID continue to monitor for signs of infection continue Protonix for stress ulcer prophylaxis continue Jero ventura and SCD's for DVT prophylaxis Discharge to hospice care Blaise Moore MD Jun 21, 2017 18:15
--- NOTE | 2017-06-21 18:27 | EKG ---
Date Performed: 06/20/2017 Time Performed: 18:29:21 PTAGE: 72 years EKG: Sinus rhythm NORMAL ECG PREVIOUS TRACING : 06/20/2017 12.07 Compared to prior tracing no significant change DOCTOR: Corrie Nobles Interpretating Date/Time 06/21/2017 18:26:15
--- NOTE | 2017-06-21 18:44 | EKG ---
Date Performed: 06/20/2017 Time Performed: 12:07:10 PTAGE: 72 years EKG: Sinus rhythm . Normal ECG PREVIOUS TRACING : 06/19/2017 19.06 Compared to prior tracing no significant change DOCTOR: Corrie Nobles Interpretating Date/Time 06/21/2017 18:43:15
== END 2017-06-21 18:40 | disposition hospice, inpatient (51) | DRG 64 ==
LOC: NEPE 14:07 → NEDA 17:14 → N03B 19:24 → N05A 06-20 22:49
PROVIDERS: ADMIT Family Medicine; ATTEND Family Medicine
DX: I61.9 Nontraumatic intracerebral hemorrhage, unspecified (principal); G93.40 Encephalopathy, unspecified; G40.409 Other generalized epilepsy and epileptic syndromes, not intractable, without status epilepticus; F03.90 Unspecified dementia, unspecified severity, without behavioral disturbance, psychotic disturbance, mood disturbance, and anxiety; Z93.1 Gastrostomy status; N39.0 Urinary tract infection, site not specified; I69.320 Aphasia following cerebral infarction; I69.391 Dysphagia following cerebral infarction; R29.810 Facial weakness; I10 Essential (primary) hypertension; Z74.01 Bed confinement status; Z51.5 Encounter for palliative care; Z66 Do not resuscitate; M19.90 Unspecified osteoarthritis, unspecified site; K21.9 Gastro-esophageal reflux disease without esophagitis; Z90.710 Acquired absence of both cervix and uterus; M21.372 Foot drop, left foot; M21.371 Foot drop, right foot; Z79.899 Other long term (current) drug therapy
CPT/HCPCS: 70450; 80053; 81001; 85025; 85610; 87077; 87086; 87186; 87641; 93005; 96372; 96374; J0696; J1165; J2060; J7050

== ENCOUNTER 2017-07-14 03:38 | Emergency (ER) | payer MEDICARE ==
[~2017-07-14] VITALS: Ht 167.6 cm; Wt 65.0 kg
[~2017-07-14 03:38] MED LIST changes: +DULC10SU3 RECTAL; +ENEMENE5 RECTAL; -MULT-120 G-TUBE; -PREV30TA3 G-TUBE; +TYLE325T PEG; -VESI5TAB PO; +ZANT150T2 PEG; +ZINC220T PEG
[2017-07-14] MEDS ORDERED: IOHEXOL 350 MG/ML 50 ML BTL (for RAD DIAG) G-TUBE ONE (03:39)
[2017-07-14 03:43] VITALS: BP 176/84; PULSE 80; RESP 16; TEMP 97.9
--- NOTE | 2017-07-14 04:27 | PD ---
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 The patient is aphasic related to a prior history of intracranial hemorrhage with a baseline GCS of 10, therefore no history is able to be obtained from her. Unfortunately, no timeframe was provided to the nurse on the patient accepted care of the patient from ambulance services. On the patient's care home was called, they estimate that the patient's feeding tube came out around midnight. PFSH Past Medical History Narrative Medical The patient's past medical history is significant for a history of arthritis, history of intracranial hemorrhage, prior history of cerebrovascular accident, dementia, acid reflux, hypertension. Arthritis: Yes Heart Rhythm Problems: No Cancer: No Cardiovascular Problems: Yes High Cholesterol: No Chest Pain: No Congestive Heart Failure: No Cerebrovascular Accident: Yes Dementia: Yes Endocrine: No Gastrointestinal Disorders: Yes GERD: Yes Genitourinary: Yes Hiatal Hernia: No Hypertension: Yes Immune Disorder: No Kidney Stones: No Musculoskeletal: Yes (CONTRACTED) Neurologic: Yes Psychiatric: Yes Reproductive: No Respiratory: No Renal Failure: Yes Ulcer: No ?: Not Past Surgical History Narrative Surgical The patient's past surgical history is significant for a PEG tube placement for feedings, hysterectomy, ear surgery Abdominal Surgery: Yes (PEG TUBE) Cardiac Surgery: No Ear Surgery: Yes Endocrine Surgery: No Eye Surgery: No Genitourinary Surgery: No Gynecologic Surgery: Yes (HYSTERECTOMY) Hysterectomy: Yes Neurologic Surgery: Yes Oral Surgery: No Thoracic Surgery: No Other Surgery: Yes Social History Alcohol Use: No Tobacco Use: No Substance Use: No Allergies-Medications (Allergen,Severity, Reaction): Coded Allergies: No Known Allergies (Unverified , 07/14/17) Reported Meds & Prescriptions Reported Meds & Active Scripts Active Lisinopril 10 Mg Tab 20 Mg PO Q12HR 30 Days hold for sbp less 120 Hydrocodone-Acetaminophen 5-325 mg Tab 1 Tab PEG Q4H PRN Reported [water-peg] [isosource] 40 Ml PEG QHOUR Keppra (Levetiracetam) 500 Mg Tab 500 Mg PO BID Zinc Sulfate 220 Mg Tab 220 Mg PEG DAILY Zantac (Ranitidine HCl) 150 Mg Tab 150 Mg PEG DAILY Enema Disposable (Sodium Phosphates) 1 Damaris Damaris 1 Applic RECTAL IN THE AM PRN Tylenol (Acetaminophen) 325 Mg Tab 650 Mg PEG Q4H PRN Donepezil 5 Mg Tab 5 Mg PEG HS Ascorbic Acid 500 Mg Tab 500 Mg PEG DAILY Amlodipine (Amlodipine Besylate) 5 Mg Tab 5 Mg PEG DAILY Review of Systems ROS Limitations: Other: (nonverbal) Gastrointestinal: Positive: Other (feeding tube dislodgment) Physical Exam Narrative General: The patient is well-developed, well-nourished female, bedbound with contractures of her extremities on exam. Head and Neck exam: Head is normocephalic atraumatic. Eyes: Pupils are equal round and reactive to light. Nose: Midline septum with pink mucous membranes Mouth: Dentition unremarkable. Moist mucus membranes. Posterior oropharynx is not erythematous. No tonsillar hypertrophy. Uvula midline. Airway patent. Neck: No palpable lymphadenopathy. No nuchal rigidity. No thyromegaly. Cardiovascular: Regular rate and rhythm without murmurs, gallops, or rubs. Lungs: Clear to auscultation bilaterally. No wheezes, rhonchi, or rales. Abdomen: Soft, without tenderness to palpation in all 4 quadrants of the abdomen. No guarding, rebound, or rigidity. Normal bowel sounds are audible. No tenderness on palpation of McBurney's point. The patient has of bandage in place in the left upper quadrant that was removed. The patient has a dried, what appears to be nearly healed stoma under the bandage. Extremities: No clubbing, cyanosis, or edema. 2+ pulses in all 4 extremities. No calf tenderness on palpation. Neurologic Exam: She is at her baseline for her neurologic examination with contractures of her upper and lower extremities, nonverbal on exam. Skin Exam: No rash noted. Intact skin that is warm and dry. Data Data Last Documented VS Vital Signs Date Time Temp Pulse Resp B/P (MAP) Pulse Ox O2 Delivery O2 Flow Rate FiO2 07/14/17 03:43 97.9 80 16 176/84 (114) Orders Orders Complete Blood Count With Diff (07/14/17 04:23) Basic Metabolic Panel (Bmp) (07/14/17 04:23) Prothrombin Time / Inr (Pt) (07/14/17 04:23) Act Partial Throm Time (Ptt) (07/14/17 04:23) Chest, Single Ap (07/14/17 04:23) Iv Access Insert/Monitor (07/14/17 04:23) Ecg Monitoring (07/14/17 04:23) Oximetry (07/14/17 04:23) Sodium Chlor 0.9% 1000 Ml Inj (Ns 1000 M (07/14/17 04:30) Invasive Rad Dept Consult (07/14/17 ) Labs Laboratory Tests Test 07/14/17 06:15 White Blood Count 4.9 TH/MM3 Red Blood Count 5.30 MIL/MM3 Hemoglobin 11.7 GM/DL Hematocrit 37.1 % Mean Corpuscular Volume 70.0 FL Mean Corpuscular Hemoglobin 22.0 PG Mean Corpuscular Hemoglobin Concent 31.5 % Red Cell Distribution Width 17.5 % Platelet Count 178 TH/MM3 Mean Platelet Volume 10.0 FL Neutrophils (%) (Auto) 49.8 % Lymphocytes (%) (Auto) 35.2 % Monocytes (%) (Auto) 12.1 % Eosinophils (%) (Auto) 1.8 % Basophils (%) (Auto) 1.1 % Neutrophils # (Auto) 2.4 TH/MM3 Lymphocytes # (Auto) 1.7 TH/MM3 Monocytes # (Auto) 0.6 TH/MM3 Eosinophils # (Auto) 0.1 TH/MM3 Basophils # (Auto) 0.1 TH/MM3 CBC Comment DIFF FINAL Differential Comment Prothrombin Time 11.0 SEC Prothromb Time International Ratio 1.0 RATIO Activated Partial Thromboplast Time 25.6 SEC MDM Medical Decision Making Medical Screen Exam Complete: Yes Emergency Medical Condition: Yes Medical Record Reviewed: Yes Interpretation(s) Last Impressions Chest X-Ray 07/14/17 0423 Signed Impressions: Service Date/Time: Friday, July 14, 2017 04:57 - CONCLUSION: No acute disease. Eben Lobo Jr., MD Differential Diagnosis Accidental versus intentional feeding tube dislodgment Narrative Course During the course of the patients emergency department visit, the patients history, examination, and differential diagnosis were reviewed with the patient. No information was available in the patient's care home record regarding the size of her feeding tube. On exam her stoma appears to be nearly closed and very small. Attempts were made at placement of the Choudhury catheter through the stoma with a 14 and a 16 Kosovan catheter without success. As the patient is exclusively dependent on her feeding tube for nutrition and hydration , the patient will be avoided to the hospital for replacement of her feeding tube. IV access was obtained and blood work was sent for analysis. From reviewing the electronic medical record it was noted that the patient was discharged into hospice care at the [facility]. A call has been placed out to hospice regarding whether they are aware of whether the family would want the patient's feeding tube replaced. The patient is confirmed to be on hospice. The patient's nurse at hospice reports that the family would be the one that would decide whether the patient's feeding tube should be replaced. The contact number for the patient's son was noted to be [phone]. I placed a call out to the patient's son, Juan Correa. A call went to [facility]. I left a message at 5:10 AM. The patient was initially provided maintenance IV fluids of normal saline at 70 mL per hour. I spoke to Dr. Pierce, the hospitalist on-call regarding this patient's admission. She recommended that the patient not be admitted to the hospital and that stated interventional radiology be consulted for feeding tube replacement this morning. An interventional radiology consultation has been placed in the record. The patient's case will be checked out to the oncoming emergency physician to disposition the patient after the conclusion of the patient's procedure. Hospice arrived at the patient's bedside and they are agreeable with the plan set forth. Another contact number was provided and I did call the number [phone]. This phone call went to [facility]. A left a message on the voicemail for a family member to call back to the emergency department regarding this patient. The patient will be checked out to the oncoming emergency physician to disposition the patient based on the conclusion of the patient's evaluation. Procedures Procedure Narrative Feeding tube replacement: Attempts were made to replace the patient's dislodged feeding tube with a Choudhury catheter through the stoma. No catheter was able to be passed through the stoma that appears to be nearly closed on evaluation. The patient's bandage was replaced. Physician Communication Physician Communication The patient's case was discussed with Dr. Pierce as mentioned above in the ED course Diagnosis Primary Impression: Dislodged gastrostomy tube Cassia Khan MD Jul 14, 2017 04:27
[2017-07-14] MEDS ORDERED: SODIUM CHLOR 0.9% 1000 ML INJ 1,000 ML IV SCH (04:30)
--- NOTE | 2017-07-14 05:58 | RADRPT ---
EXAM DATE/TIME: 07/14/2017 04:57 [facility] COMPARISON: CHEST SINGLE AP, September 23, 2016, 14:27. INDICATIONS : Peg tube accidentally removed. MEDICAL HISTORY : Arthritis. Gastroesophageal reflux disease. Hypertension. CVA SURGICAL HISTORY : Hysterectomy. Peg tube ENCOUNTER: Initial ACUITY: 1 day PAIN SCORE: Non-responsive. LOCATION: Bilateral chest FINDINGS: A single view of the chest demonstrates the lungs to be symmetrically aerated without evidence of mas s, infiltrate or effusion. The cardiomediastinal contours are unremarkable. Osseous structures are intact. CONCLUSION: No acute disease. Eben Lobo Jr., MD on July 14, 2017 at 5:56 Board Certified Radiologist. This report was verified electronically.
[2017-07-14 06:41] LABS: AUTOMATED NEUTROPHIL # 2.4 TH/MM3 (1.8-7.7); BASOPHIL # 0.1 TH/MM3 (0-0.2); BASOPHIL % 1.1 % (0.0-2.0); EOSINOPHIL # 0.1 TH/MM3 (0-0.4); EOSINOPHIL % 1.8 % (0.0-4.0); HEMATOCRIT 37.1 % (35.0-46.0); HEMO FLAGS DIFF FINAL; LYMPH % 35.2 % (9.0-44.0); LYMPHOCYTE # 1.7 TH/MM3 (1.0-4.8); MEAN CORPUSCULAR HGB CONC 31.5 % (32.0-36.0); MONO % 12.1 % (0.0-8.0); NEUT % 49.8 % (16.0-70.0); PLATELET COUNT 178 TH/MM3 (150-450); RED CELL DISTRIBUTION WIDTH 17.5 % (11.6-17.2); WHITE BLOOD COUNT 4.9 TH/MM3 (4.0-11.0)
[2017-07-14 06:52] LABS: APTT (PATIENT) 25.6 SEC (24.3-30.1)
[2017-07-14] MEDS ORDERED: LEVE500 PO (06:52)
[2017-07-14] MEDS ORDERED: ISOSOURCE PEG (06:52)
[2017-07-14] MEDS ORDERED: [UNRECOGNIZED DRUG - OTHER] (06:52)
[2017-07-14 07:09] LABS: BICARBONATE 30.1 MEQ/L (21.0-32.0); POTASSIUM 4.3 MEQ/L (3.5-5.1)
[2017-07-14 10:07] VITALS: BP 183/87; PULSE 89; RESP 16; O2SAT 99
[2017-07-14] MEDS ORDERED: MIDAZOLAM HCL 2 MG/2 ML VIAL ONE (10:31)
--- NOTE | 2017-07-14 11:18 | PD.RAD ---
Post Procedure Progress Note Pre Procedure Diagnosis: (1) Malfunction of gastrostomy tube Post Procedure Diagnosis: (1) Malfunction of gastrostomy tube Procedure Date: Jul 14, 2017 Supervising Radiologist: Peter Olguin Estimated blood loss: 2CC Anesthesia: Local, Conscious Sedation Plan of Activity Patient to Unit: Other Patient Condition: Poor Additional Comments: G Tube replaced through the existing tract. New tube verified to be in good position. Tube is OK for use. Full dictated report to follow See PACS Report for procedural detail/treatment Peter Olguin MD Jul 14, 2017 11:18
--- NOTE | 2017-07-14 12:21 | PD ---
Data Data Last Documented VS Vital Signs Date Time Temp Pulse Resp B/P (MAP) Pulse Ox O2 Delivery O2 Flow Rate FiO2 07/14/17 10:07 89 16 183/87 (119) 99 Room Air 07/14/17 03:43 97.9 Orders Orders Complete Blood Count With Diff (07/14/17 04:23) Basic Metabolic Panel (Bmp) (07/14/17 04:23) Prothrombin Time / Inr (Pt) (07/14/17 04:23) Act Partial Throm Time (Ptt) (07/14/17 04:23) Chest, Single Ap (07/14/17 04:23) Iv Access Insert/Monitor (07/14/17 04:23) Ecg Monitoring (07/14/17 04:23) Oximetry (07/14/17 04:23) Sodium Chlor 0.9% 1000 Ml Inj (Ns 1000 M (07/14/17 04:30) Fentanyl Inj (Fentanyl Inj) (07/14/17 10:31) Midazolam Inj (Versed Inj) (07/14/17 10:31) Diet Progression Instructions (07/14/17 11:15) Wound Care (07/14/17 11:15) Wound Care (07/14/17 11:15) ^ Flush Tube (07/14/17 11:15) ^ Crush Medications (07/14/17 11:15) Notify Dr: Other (07/14/17 11:15) Notify Dr: Temperature (07/14/17 11:15) Gastrostomy Tube Placement (07/14/17 ) Iohexol 350 Inj (Omnipaque 350 Inj) (07/14/17 03:39) Labs Laboratory Tests Test 07/14/17 06:15 White Blood Count 4.9 TH/MM3 Red Blood Count 5.30 MIL/MM3 Hemoglobin 11.7 GM/DL Hematocrit 37.1 % Mean Corpuscular Volume 70.0 FL Mean Corpuscular Hemoglobin 22.0 PG Mean Corpuscular Hemoglobin Concent 31.5 % Red Cell Distribution Width 17.5 % Platelet Count 178 TH/MM3 Mean Platelet Volume 10.0 FL Neutrophils (%) (Auto) 49.8 % Lymphocytes (%) (Auto) 35.2 % Monocytes (%) (Auto) 12.1 % Eosinophils (%) (Auto) 1.8 % Basophils (%) (Auto) 1.1 % Neutrophils # (Auto) 2.4 TH/MM3 Lymphocytes # (Auto) 1.7 TH/MM3 Monocytes # (Auto) 0.6 TH/MM3 Eosinophils # (Auto) 0.1 TH/MM3 Basophils # (Auto) 0.1 TH/MM3 CBC Comment DIFF FINAL Differential Comment Prothrombin Time 11.0 SEC Prothromb Time International Ratio 1.0 RATIO Activated Partial Thromboplast Time 25.6 SEC Blood Urea Nitrogen 17 MG/DL Creatinine 0.52 MG/DL Random Glucose 91 MG/DL Calcium Level 9.7 MG/DL Sodium Level 141 MEQ/L Potassium Level 4.3 MEQ/L Chloride Level 106 MEQ/L Carbon Dioxide Level 30.1 MEQ/L Anion Gap 5 MEQ/L Estimat Glomerular Filtration Rate 140 ML/MIN MDM Supervised Visit with JUAN PABLO: No Narrative Course This is a 72-year-old female who is on hospice who presents with her G-tube displaced. It was unable to replace in the emergency department. She went to interventional radiology where was replaced without trouble. Patient will be discharged home. Diagnosis Primary Impression: Dislodged gastrostomy tube Patient Instructions: General Instructions Med/Other Pt SpecificInfo: No Change to Meds Disposition: 01 DISCHARGE HOME Condition: Stable Gisella Hicks MD Jul 14, 2017 12:21
--- NOTE | 2017-07-14 14:41 | RADRPT ---
EXAM DATE/TIME: 07/14/2017 10:28 [facility] COMPARISON: GASTROSTOMY TUBE INJECTION, February 28, 2017, 16:47. INDICATIONS : Patient with hx of CVA. G tube fell out. MEDICAL HISTORY : 1. CVA 2. GERD 3. HTN 4. Dysphagia 5. Aphsia SURGICAL HISTORY : 1. Gtube 2. Ear surgery 3. Lt sided craniotomy 4. hysterectomy ENCOUNTER: Initial ACUITY: 1 day PAIN SCORE: 0/10 FLUORO TIME: 1.5 minutes IMAGE SERIES: 2 SEDATION TIME: 15 minutes CONTRAST: 15 cc Omnipaque (iohexol) 350 MEDICATION(S): 1.) 1 mg midazolam (Versed) IV 2.) 50 mcg Fentanyl (Sublimaze) IV DEVICE(S): 1.) 18 Fr gastrostomy tube PROCEDURE : 1. Fluoroscopically guided gastrostomy tube placement. 2. Conscious sedation with continuous EKG and oximetry monitoring. The risks, benefits and alternatives to the procedure were explained to the patient's daughter. Taina rommel consent was obtained via telephone. The site was prepped in sterile fashion. Full sterile techniq ue was used, including cap, mask, sterile gloves and gown and a large sterile sheet. Hand hygiene an d 2% chlorhexidine and/or betadine/alcohol prep was utilized per protocol for cutaneous antisepsis. The skin and subcutaneous tissues were infiltrated with local anesthetic solution. The existing tract on the abdominal wall is identified. The skin around was anesthetized with 10 cc 1 % lidocaine. A 5 [place] Island[place] dilator was advanced into the tract. Forceful injection of contrast revealed a tract down to the stomach. A 0.035 wire was advanced through the dilator. The tract was dilated to 18 [place] Island[place]. A 16 [place] G-tube was advanced through the tract and positioned within the stomach withou t difficulty. Position was confirmed with an injection of contrast. Conscious sedation was performed with the prescribed dosages and duration as above in the presence of an independent trained radiology nurse to assist in the monitoring of the patient. EKG and oximetry remained stable throughout the procedure. The patient tolerated the procedure well and there were n o complications. The patient was sent to post anesthesia recovery in stable condition. CONCLUSION: Uncomplicated gastrostomy tube placement as above. Peter Olguin MD on July 14, 2017 at 14:36 Board Certified Radiologist. This report was verified electronically.
== END 2017-07-14 13:35 | disposition hospice, inpatient (51) ==
LOC: NEPE 03:38
DX: K94.23 Gastrostomy malfunction (principal); I10 Essential (primary) hypertension; Z46.59 Encounter for fitting and adjustment of other gastrointestinal appliance and device
CPT/HCPCS: 43760; 49440; 71010; 80048; 85025; 85610; 85730; 96361; 96374; 96375; 99152; 99284; C1769; J2250; J3010; J7030; Q9967

== ENCOUNTER 2017-12-26 10:48 | Emergency (ER) | payer MEDICARE ==
[~2017-12-26] VITALS: Ht 149.9 cm; Wt 45.0 kg
[~2017-12-26 10:48] MED LIST changes: +ASCO500T G-TUBE; -ASCO500T PEG; -DULC10SU3 RECTAL; +ISOSOURCE PEG; +LEVE500 PO; -MAGNSOL2 PEG; -MILKSUS PEG; +[UNRECOGNIZED DRUG - OTHER]
[2017-12-26 10:58] VITALS: BP 124/58; PULSE 94; RESP 16; TEMP 98.1; O2SAT 96
[2017-12-26] MEDS ORDERED: SODIUM CHLOR 0.9% 1000 ML INJ 1,000 ML IV SCH (11:04)
--- NOTE | 2017-12-26 11:10 | PD ---
HPI Chief Complaint: Fall Time Seen by Provider: 11:04 Travel History International Travel<30 days: No Contact w/Intl Traveler<30days: No Traveled to known affect area: No History of Present Illness HPI 72-year-old nonverbal female with PMH of CVA, HTN arrives to the ED via EMS from her [facility] after unwitnessed fall. Workers at the left states that they saw her in bed 20 minutes before finding her on the floor with a hematoma on the right forehead. On exam the patient is nonverbal, she does not respond to questioning, she does not follow commands. She is unable to provide any history. PFSH Past Medical History Arthritis: Yes Heart Rhythm Problems: No Cancer: No Cardiovascular Problems: Yes High Cholesterol: No Chest Pain: No Congestive Heart Failure: No Cerebrovascular Accident: Yes Dementia: Yes Endocrine: No Gastrointestinal Disorders: Yes GERD: Yes Genitourinary: Yes Hiatal Hernia: No Hypertension: Yes Immune Disorder: No Kidney Stones: No Musculoskeletal: Yes (CONTRACTED) Neurologic: Yes Psychiatric: Yes Reproductive: No Respiratory: No Renal Failure: Yes Ulcer: No Tetanus Vaccination: Unknown Influenza Vaccination: No ?: Not Menopausal: Yes Past Surgical History Abdominal Surgery: Yes (PEG TUBE) Cardiac Surgery: No Ear Surgery: Yes Endocrine Surgery: No Eye Surgery: No Genitourinary Surgery: No Gynecologic Surgery: Yes (HYSTERECTOMY) Hysterectomy: Yes Neurologic Surgery: Yes Oral Surgery: No Thoracic Surgery: No Other Surgery: Yes Social History Alcohol Use: No Tobacco Use: No Substance Use: No Allergies-Medications (Allergen,Severity, Reaction): Coded Allergies: No Known Allergies (Unverified Adverse Reaction, Unknown, 12/26/17) Reported Meds & Prescriptions Reported Meds & Active Scripts Active Cipro Liq (Ciprofloxacin) 500 Mg/5 Ml Susp 500 Mg PO BID 7 Days Do not administer within 2 hours of zinc administration Hydrocodone-Acetaminophen 5-325 mg Tab 1 Tab PEG Q4H PRN Reported Ditropan (Oxybutynin Chloride) 5 Mg Tab 5 Mg PEG Q12HR Multi-Vitamin/Minerals (Multiple Vitamins W/ Minerals) 1 Tab Tab 1 Tab PO DAILY Milk of Magnesia Liq (Magnesium Hydroxide) 400 Mg/5 Ml Susp 30 Ml PEG HS PRN Lisinopril 20 Mg Tab 20 Mg PEG BID Dulcolax Supp (Bisacodyl) 10 Mg Supp 10 Mg RECTAL DAILY PRN Amlodipine (Amlodipine Besylate) 10 Mg Tab 10 Mg G-TUBE DAILY Keppra (Levetiracetam) 500 Mg Tab 500 Mg PO BID Zinc Sulfate 220 Mg Tab 220 Mg PEG DAILY Zantac (Ranitidine HCl) 150 Mg Tab 150 Mg PEG DAILY Enema Disposable (Sodium Phosphates) 1 Damaris Damaris 1 Applic RECTAL IN THE AM PRN Tylenol (Acetaminophen) 325 Mg Tab 650 Mg PEG Q4H PRN Ascorbic Acid 500 Mg Tab 500 Mg G-TUBE BID Review of Systems Except as stated in HPI: all other systems reviewed are Neg Physical Exam Narrative GENERAL: Well-nourished, -[place] female in no acute distress. SKIN: Focused skin assessment warm/dry. Hematoma over the right temporal. HEAD: Normocephalic. Hematoma right frontal region. No tenderness to palpation of the skull or facial bones. No bony step-offs. EYES: No scleral icterus. No injection or drainage. PERRLA. NECK: Supple, trachea midline. No JVD or lymphadenopathy. No tenderness to palpation of the midline. CARDIOVASCULAR: Regular rate and rhythm without murmurs, gallops, or rubs. RESPIRATORY: Breath sounds clear and equal bilaterally. No accessory muscle use. GASTROINTESTINAL: Abdomen soft, non-tender, nondistended. Active bowel sounds. Feeding tube in place, without signs of infection. : Choudhury catheter in place with cloudy yellow urine in the collecting bag. MUSCULOSKELETAL: No cyanosis, or edema. Contractures of bilateral upper and lower extremities. No tenderness to palpation over the joint lines of the upper and lower extremities bilaterally. BACK: Nontender.Without obvious deformity. No CVA tenderness. Data Data Last Documented VS Vital Signs Date Time Temp Pulse Resp B/P (MAP) Pulse Ox O2 Delivery O2 Flow Rate FiO2 12/26/17 11:19 96 Room Air 12/26/17 10:58 98.1 94 16 124/58 (80) Orders Orders Ct Brain W/O Iv Contrast(Rout) (12/26/17 11:04) Ct Cerv Spine W/O Contrast (12/26/17 11:04) Basic Metabolic Panel (Bmp) (12/26/17 11:04) Complete Blood Count With Diff (12/26/17 11:04) Urinalysis - C+S If Indicated (12/26/17 11:04) Iv Access Insert/Monitor (12/26/17 11:04) Ecg Monitoring (12/26/17 11:04) Oximetry (12/26/17 11:04) Sodium Chlor 0.9% 1000 Ml Inj (Ns 1000 M (12/26/17 11:04) Sodium Chloride 0.9% Flush (Ns Flush) (12/26/17 11:15) Lactic Acid (12/26/17 11:04) Urine Culture (12/26/17 11:10) Ed Discharge Order (12/26/17 12:24) Labs Laboratory Tests Test 12/26/17 11:10 White Blood Count 5.0 TH/MM3 Red Blood Count 5.63 MIL/MM3 Hemoglobin 12.9 GM/DL Hematocrit 40.4 % Mean Corpuscular Volume 71.7 FL Mean Corpuscular Hemoglobin 22.9 PG Mean Corpuscular Hemoglobin Concent 31.9 % Red Cell Distribution Width 14.8 % Platelet Count 253 TH/MM3 Mean Platelet Volume 10.4 FL Neutrophils (%) (Auto) 71.5 % Lymphocytes (%) (Auto) 18.9 % Monocytes (%) (Auto) 8.2 % Eosinophils (%) (Auto) 0.9 % Basophils (%) (Auto) 0.5 % Neutrophils # (Auto) 3.6 TH/MM3 Lymphocytes # (Auto) 0.9 TH/MM3 Monocytes # (Auto) 0.4 TH/MM3 Eosinophils # (Auto) 0.0 TH/MM3 Basophils # (Auto) 0.0 TH/MM3 CBC Comment DIFF FINAL Differential Comment Urine Color YELLOW Urine Turbidity CLOUDY Urine pH 8.0 Urine Specific [place] 1.009 Urine Protein TRACE mg/dL Urine Glucose (UA) NEG mg/dL Urine Ketones NEG mg/dL Urine Occult Blood NEG Urine Nitrite POS Urine Bilirubin NEG Urine Urobilinogen LESS THAN 2.0 MG/DL Urine Leukocyte Esterase LARGE Urine RBC 4 /hpf Urine WBC 6 /hpf Urine Squamous Epithelial Cells 2 /hpf Urine Amorphous Sediment MANY Urine Bacteria OCC /hpf Urine Mucus FEW /lpf Microscopic Urinalysis Comment CULTURE INDICATED Blood Urea Nitrogen 13 MG/DL Creatinine 0.42 MG/DL Random Glucose 103 MG/DL Calcium Level 9.5 MG/DL Sodium Level 138 MEQ/L Potassium Level 4.6 MEQ/L Chloride Level 104 MEQ/L Carbon Dioxide Level 24.4 MEQ/L Anion Gap 10 MEQ/L Estimat Glomerular Filtration Rate 179 ML/MIN Lactic Acid Level 1.1 mmol/L MDM Medical Decision Making Medical Screen Exam Complete: Yes Emergency Medical Condition: Yes Differential Diagnosis contusion versus hematoma versus ICH versus metabolic derangement versus dehydration versus UTI versus other Narrative Course 72-year-old nonverbal female with PMH of CVA, HTN arrives to the ED via EMS from her [facility] after unwitnessed fall. Workers at the left states that they saw her in bed 20 minutes before finding her on the floor with a hematoma on the right forehead. On exam the patient is nonverbal, she does not respond to questioning, she does not follow commands. She is unable to provide any history. Patient is afebrile, bp 124/58 on presentation. On exam the patient is alert, looking about the room. I am unable to elicit any response to palpation of the skull bones, midline cervical spine, joints of the upper and lower extremities bilaterally. Both upper and lower extremities are contractured. Abdomen is soft and nontender. G-tube in place. There is a Choudhury catheter in place with cloudy yellow urine in the collection bag. IV was established. CT brain: Marked atrophy, dilatation left lateral ventricle with previous surgery on the left. Negative for acute process per radiology read. Cervical CT: No acute fracture or subluxation. Degenerative spondylosis of the cervical spine most prominent at C3 4, C5 6 and C6 7. UA: Yellow, cloudy, nitrite positive, large leukocyte esterase, 6 WBCs, occasional bacteria. Culture indicated 12/26/17 11:10 Calcium Level 9.5 On recheck there is a brand representative of the [facility] at bedside. She states that the patient was alone for 10 minutes when she was found on the floor, face down. She states the patient is behaving at baseline. I discussed the results of the workup with her. I prescribed a course of Cipro 500 mg twice a day 7 days to treat the UTI. Patient is stable and discharged back to the [facility]. Diagnosis Primary Impression: Fall Qualified Codes: W19.XXXA - Unspecified fall, initial encounter Additional Impressions: Traumatic hematoma of scalp Qualified Codes: S00.03XA - Contusion of scalp, initial encounter Urinary tract infection associated with indwelling urethral catheter Qualified Codes: T83.511A - Infection and inflammatory reaction due to indwelling urethral catheter, initial encounter; N39.0 - Urinary tract infection , site not specified Referrals: Primary Care Physician Patient Instructions: Catheter-associated Urinary Tract Infection (ED), General Instructions Additional Instructions: Do not administer Cipro within 2 hours of Zinc administration. Med/Other Pt SpecificInfo: Prescription(s) given Scripts Ciprofloxacin Liq (Cipro Liq) 500 Mg/5 Ml Susp 500 MG PO BID for Infection for 7 Days, #70 ML 0 Refills Do not administer within 2 hours of zinc administration Prov: Risa Acosta MD 12/26/17 Disposition: 03 DISCHARGE TO SNF Condition: Stable Mary Frias Dec 26, 2017 11:10
[2017-12-26] MEDS ORDERED: SODIUM CHLORIDE 0.9% FLUSH 10 ML FLUSH IV FLUSH PRN (11:15)
[2017-12-26 11:19] VITALS: O2SAT 96
[2017-12-26 11:30] LABS: AUTOMATED NEUTROPHIL # 3.6 TH/MM3 (1.8-7.7); BASOPHIL % 0.5 % (0.0-2.0); EOSINOPHIL % 0.9 % (0.0-4.0); HEMATOCRIT 40.4 % (35.0-46.0); HEMOGLOBIN 12.9 GM/DL (11.6-15.3); LYMPH % 18.9 % (9.0-44.0); LYMPHOCYTE # 0.9 TH/MM3 (1.0-4.8); MEAN CELL VOLUME 71.7 FL (80.0-100.0); MEAN CORPUSCULAR HEMOGLOBIN 22.9 PG (27.0-34.0); MEAN CORPUSCULAR HGB CONC 31.9 % (32.0-36.0); MEAN PLATELET VOLUME 10.4 FL (7.0-11.0); MONO % 8.2 % (0.0-8.0); MONOCYTE # 0.4 TH/MM3 (0-0.9); NEUT % 71.5 % (16.0-70.0); PLATELET COUNT 253 TH/MM3 (150-450); RED BLOOD COUNT 5.63 MIL/MM3 (4.00-5.30); RED CELL DISTRIBUTION WIDTH 14.8 % (11.6-17.2)
--- NOTE | 2017-12-26 11:43 | RADRPT ---
EXAM DATE/TIME: 12/26/2017 11:27 [facility] COMPARISON: CT BRAIN W/O CONTRAST, June 20, 2017, 16:52. INDICATIONS : Fall from bed. Right forehead hematoma. RADIATION DOSE: 56.35 CTDIvol (mGy) MEDICAL HISTORY : Hypertension. Dementia. Cerebrovascular disease.Renal failure SURGICAL HISTORY : Hysterectomy. ENCOUNTER: Initial ACUITY: 1 day PAIN SCALE: Non-responsive LOCATION: cranial TECHNIQUE: Multiple contiguous axial images were obtained of the head. Using automated exposure control and adj ustment of the mA and/or kV according to patient size, radiation dose was kept as low as reasonably a chievable to obtain optimal diagnostic quality images. DICOM format image data is available electro nically for review and comparison. FINDINGS: Moderate motion artifact is present. Evidence for previous surgery is seen on the left. 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 Marked central and cortical atrophy There is no parenchymal hemorrhage. No extra-axial fluid collections appreciated Posterior fossa shows atrophy but otherwise negative. CONCLUSION: \ Marked atrophy. Dilatation left lateral ventricle with previous surgery on the left. Negative for acute process. Byron Olugin MD FACR on December 26, 2017 at 11:41 Board Certified Radiologist. This report was verified electronically.
[2017-12-26 11:48] LABS: BICARBONATE 24.4 MEQ/L (21.0-32.0); CALCIUM 9.5 MG/DL (8.5-10.1); CREATININE 0.42 MG/DL (0.50-1.00)
[2017-12-26] MEDS ORDERED: OXYB5TAB8 PEG (11:56)
[2017-12-26] MEDS ORDERED: DULC10SU3 RECTAL (11:56)
[2017-12-26] MEDS ORDERED: LISI-515 PEG (11:56)
[2017-12-26] MEDS ORDERED: MILKSUS PEG (11:56)
[2017-12-26] MEDS ORDERED: MULTTAB62 PO (11:56)
[2017-12-26] MEDS ORDERED: AMLO10TA2 G-TUBE (11:56)
--- NOTE | 2017-12-26 11:59 | PD ---
Physical Exam Date Seen by Provider: Dec 26, 2017 Narrative Patient is being evaluated for a fall with apparent injury to her head. She was found on the floor at a care home with a contusion to her forehead. The circumstances of the fall are unknown. The patient suffers from dementia. Data Data Last Documented VS Vital Signs Date Time Temp Pulse Resp B/P (MAP) Pulse Ox O2 Delivery O2 Flow Rate FiO2 12/26/17 11:19 96 Room Air 12/26/17 10:58 98.1 94 16 124/58 (80) Orders Orders Ct Brain W/O Iv Contrast(Rout) (12/26/17 11:04) Ct Cerv Spine W/O Contrast (12/26/17 11:04) Basic Metabolic Panel (Bmp) (12/26/17 11:04) Complete Blood Count With Diff (12/26/17 11:04) Urinalysis - C+S If Indicated (12/26/17 11:04) Iv Access Insert/Monitor (12/26/17 11:04) Ecg Monitoring (12/26/17 11:04) Oximetry (12/26/17 11:04) Sodium Chlor 0.9% 1000 Ml Inj (Ns 1000 M (12/26/17 11:04) Sodium Chloride 0.9% Flush (Ns Flush) (12/26/17 11:15) Lactic Acid (12/26/17 11:04) Labs Laboratory Tests Test 12/26/17 11:10 White Blood Count 5.0 TH/MM3 Red Blood Count 5.63 MIL/MM3 Hemoglobin 12.9 GM/DL Hematocrit 40.4 % Mean Corpuscular Volume 71.7 FL Mean Corpuscular Hemoglobin 22.9 PG Mean Corpuscular Hemoglobin Concent 31.9 % Red Cell Distribution Width 14.8 % Platelet Count 253 TH/MM3 Mean Platelet Volume 10.4 FL Neutrophils (%) (Auto) 71.5 % Lymphocytes (%) (Auto) 18.9 % Monocytes (%) (Auto) 8.2 % Eosinophils (%) (Auto) 0.9 % Basophils (%) (Auto) 0.5 % Neutrophils # (Auto) 3.6 TH/MM3 Lymphocytes # (Auto) 0.9 TH/MM3 Monocytes # (Auto) 0.4 TH/MM3 Eosinophils # (Auto) 0.0 TH/MM3 Basophils # (Auto) 0.0 TH/MM3 CBC Comment DIFF FINAL Differential Comment Blood Urea Nitrogen 13 MG/DL Creatinine 0.42 MG/DL Random Glucose 103 MG/DL Calcium Level 9.5 MG/DL Sodium Level 138 MEQ/L Potassium Level 4.6 MEQ/L Chloride Level 104 MEQ/L Carbon Dioxide Level 24.4 MEQ/L Anion Gap 10 MEQ/L Estimat Glomerular Filtration Rate 179 ML/MIN Lactic Acid Level 1.1 mmol/L MDM Supervised Visit with JUAN PABLO: Yes Narrative Course I, Dr. Acosta, have reviewed the advance practice practitioner's documentation and am in agreement, met with the patient face to face, made the diagnosis, and the medical decision making was done by me. *My assessment and Findings: Patient is nonverbal. She does not appear to be in any acute distress. She has a contusion to the right forehead. Please see Mary Frais PA-C's note for results of laboratory and radiographic evaluation, ED course, final diagnosis and disposition Risa Acosta MD Dec 26, 2017 11:59
[2017-12-26 12:03] LABS: AMORPHOUS SEDIMENT, URINE MANY; BACTERIA, URINE OCC /hpf; BILIRUBIN, URINE NEG (NEG); BLOOD, URINE NEG (NEG); GLUCOSE,URINE NEG (NEG); KETONE, URINE NEG (NEG); MUCUS URINE FEW /lpf (OCC); NITRITE,URINE POS (NEG); SQUAMOUS EPITHELIAL CELL URINE 2 /hpf (0-5); URINE COLOR YELLOW (YELLW/STRAW); URINE LEUKOCYTE ESTERASE LARGE (NEG)
--- NOTE | 2017-12-26 12:07 | RADRPT ---
EXAM DATE/TIME: 12/26/2017 11:27 [facility] COMPARISON: CT CERVICAL SPINE W/O CONTRAST, March 16, 2017, 19:35. INDICATIONS : Fall from bed. Right forehead hematoma. RADIATION DOSE: 34.98 CTDIvol (mGy) MEDICAL HISTORY : Hypertension. Dementia. Cerebrovascular disease.Renal failure SURGICAL HISTORY : Hysterectomy. ENCOUNTER: Initial ACUITY: 1 day PAIN SCALE: Non-responsive LOCATION: neck TECHNIQUE: Volumetric scanning of the cervical spine was performed. Multiplanar reconstructions in the sagittal, coronal and oblique axial planes were performed. Using automated exposure control and adjustment o f the mA and/or kV according to patient size, radiation dose was kept as low as reasonably achievable to obtain optimal diagnostic quality images. DICOM format image data is available electronically f or review and comparison. FINDINGS: Vertebral body heights are maintained. Osseous structures are intact without evidence for acute bony fracture. Dens is intact. There is stable subtle 2 mm anterolisthesis of C4 on C5. Degenerative kypho sis centered at C5-6 stable from prior exam. There is a normal C1-2 relationship. Facets are normally aligned. There is no significant prevertebral soft tissue hematoma. Multilevel degenerative spondylo sis with disc space narrowing and osteophyte formation most prominently at C5-6 and C6-7. There is pe rsistent posterior disc protrusion at C3-4. Bony central canal is patent. Multilevel facet arthropath y. No significant cervical adenopathy or gross mass. The thyroid appears unremarkable. Visualized yanira g apices are clear without pneumothorax. CONCLUSION: 1. No acute fracture or subluxation. 2. Degenerative spondylosis of the cervical spine most prominently at C3-4, C5-6 and C6-7. Taye Rain MD on December 26, 2017 at 12:02 Board Certified Radiologist. This report was verified electronically.
[2017-12-26] MEDS ORDERED: CIPR500S2 PO (12:24)
[2017-12-26 12:35] VITALS: BP 117/58
== END 2017-12-26 15:44 ==
LOC: NEPE 10:48
DX: S00.03XA Contusion of scalp, initial encounter (principal); T83.511A Infection and inflammatory reaction due to indwelling urethral catheter, initial encounter; N39.0 Urinary tract infection, site not specified; F03.90 Unspecified dementia, unspecified severity, without behavioral disturbance, psychotic disturbance, mood disturbance, and anxiety; M19.90 Unspecified osteoarthritis, unspecified site; I10 Essential (primary) hypertension; W19.XXXA Unspecified fall, initial encounter; Z86.73 Personal history of transient ischemic attack (TIA), and cerebral infarction without residual deficits
CPT/HCPCS: 70450; 72125; 80048; 81001; 83605; 85025; 87086; 96360; 99284; J7030

== ENCOUNTER 2018-01-22 12:01 | Emergency (ER) | payer MEDICARE, OTHER ==
[~2018-01-22 12:01] MED LIST changes: +AMLO10TA2 G-TUBE; -AMLO5TAB2 PEG; +CIPR500S2 PO; -DONE5TAB7 PEG; +DULC10SU3 RECTAL; -ISOSOURCE PEG; +LISI-515 PEG; -LISI10TA3 PO; +MILKSUS PEG; +MULTTAB62 PO; +OXYB5TAB8 PEG; -[UNRECOGNIZED DRUG - OTHER]
[2018-01-22 12:22] VITALS: BP 157/74; PULSE 100; RESP 18; TEMP 98.1; O2SAT 98
--- NOTE | 2018-01-22 12:57 | PD ---
HPI Chief Complaint: GI Complaint Time Seen by Provider: 12:45 Travel History International Travel<30 days: No Contact w/Intl Traveler<30days: No Traveled to known affect area: No History of Present Illness HPI 73-year-old female history of dementia, CVA with right-sided deficit, CKD, hypertension, presents emergency department for evaluation after her PEG tube was dislodged at her [place] [facility] facility. Patient is unable to provide any history. The worker who accompanies her, tells me she does not know when it was dislodged but they noticed it today. Patient is otherwise been well and acting at her baseline. PFSH Past Medical History Arthritis: Yes Heart Rhythm Problems: No Cancer: No Cardiovascular Problems: Yes High Cholesterol: No Chest Pain: No Congestive Heart Failure: No Cerebrovascular Accident: Yes Dementia: Yes Endocrine: No Gastrointestinal Disorders: Yes GERD: Yes Genitourinary: Yes Hiatal Hernia: No Hypertension: Yes Immune Disorder: No Kidney Stones: No Musculoskeletal: Yes (CONTRACTED) Neurologic: Yes Psychiatric: Yes Reproductive: No Respiratory: No Renal Failure: Yes Ulcer: No Menopausal: Yes Past Surgical History Abdominal Surgery: Yes (PEG TUBE) Cardiac Surgery: No Ear Surgery: Yes Endocrine Surgery: No Eye Surgery: No Genitourinary Surgery: No Gynecologic Surgery: Yes (HYSTERECTOMY) Hysterectomy: Yes Neurologic Surgery: Yes Oral Surgery: No Thoracic Surgery: No Other Surgery: Yes Social History Alcohol Use: No Tobacco Use: No Substance Use: No Allergies-Medications (Allergen,Severity, Reaction): Coded Allergies: No Known Allergies (Unverified Adverse Reaction, Unknown, 12/26/17) Reported Meds & Prescriptions Reported Meds & Active Scripts Active Cipro Liq (Ciprofloxacin) 500 Mg/5 Ml Susp 500 Mg PO BID 7 Days Do not administer within 2 hours of zinc administration Hydrocodone-Acetaminophen 5-325 mg Tab 1 Tab PEG Q4H PRN Reported Ditropan (Oxybutynin Chloride) 5 Mg Tab 5 Mg PEG Q12HR Multi-Vitamin/Minerals (Multiple Vitamins W/ Minerals) 1 Tab Tab 1 Tab PO DAILY Milk of Magnesia Liq (Magnesium Hydroxide) 400 Mg/5 Ml Susp 30 Ml PEG HS PRN Lisinopril 20 Mg Tab 20 Mg PEG BID Dulcolax Supp (Bisacodyl) 10 Mg Supp 10 Mg RECTAL DAILY PRN Amlodipine (Amlodipine Besylate) 10 Mg Tab 10 Mg G-TUBE DAILY Keppra (Levetiracetam) 500 Mg Tab 500 Mg PO BID Zinc Sulfate 220 Mg Tab 220 Mg PEG DAILY Zantac (Ranitidine HCl) 150 Mg Tab 150 Mg PEG DAILY Enema Disposable (Sodium Phosphates) 1 Damaris Damaris 1 Applic RECTAL IN THE AM PRN Tylenol (Acetaminophen) 325 Mg Tab 650 Mg PEG Q4H PRN Ascorbic Acid 500 Mg Tab 500 Mg G-TUBE BID Review of Systems Except as stated in HPI: all other systems reviewed are Neg Physical Exam Narrative GENERAL: Well-nourished female patient, lying in bed, appears without distress. SKIN: Focused skin assessment warm/dry. HEAD: Atraumatic. Normocephalic. EYES: Pupils equal and round. No scleral icterus. No injection or drainage. ENT: No nasal bleeding or discharge. Mucous membranes pink and moist. NECK: Trachea midline. No JVD. CARDIOVASCULAR: Elevated rate and rhythm. RESPIRATORY: No accessory muscle use. Clear to auscultation. Breath sounds equal bilaterally. GASTROINTESTINAL: Abdomen soft, non-tender, nondistended. Hepatic and splenic margins not palpable. Left upper quadrant opening where PEG tube once was. No significant erythema or edema. No active drainage. MUSCULOSKELETAL: No obvious deformities. No clubbing. No cyanosis. No edema. NEUROLOGICAL: Awake and alert. Unable to assess cranial nerves. Patient has contracted right upper extremity. She is nonverbal. She does move her eyes. Data Data Last Documented VS Vital Signs Date Time Temp Pulse Resp B/P (MAP) Pulse Ox O2 Delivery O2 Flow Rate FiO2 01/22/18 12:22 98.1 100 18 157/74 (101) 98 Orders Orders Complete Blood Count With Diff (01/22/18 12:48) Basic Metabolic Panel (Bmp) (01/22/18 12:48) Coag Profile (01/22/18 12:48) Iv Access Insert/Monitor (01/22/18 12:48) Gastrostomy Tube Placement (01/22/18 ) Iohexol 350 Inj (Omnipaque 350 Inj) (01/22/18 14:37) Labs Laboratory Tests Test 01/22/18 12:50 White Blood Count 4.9 TH/MM3 Red Blood Count 5.33 MIL/MM3 Hemoglobin 11.7 GM/DL Hematocrit 37.7 % Mean Corpuscular Volume 70.8 FL Mean Corpuscular Hemoglobin 22.0 PG Mean Corpuscular Hemoglobin Concent 31.1 % Red Cell Distribution Width 15.2 % Platelet Count 284 TH/MM3 Mean Platelet Volume 9.9 FL Neutrophils (%) (Auto) 62.1 % Lymphocytes (%) (Auto) 24.0 % Monocytes (%) (Auto) 11.5 % Eosinophils (%) (Auto) 1.4 % Basophils (%) (Auto) 1.0 % Neutrophils # (Auto) 3.0 TH/MM3 Lymphocytes # (Auto) 1.2 TH/MM3 Monocytes # (Auto) 0.6 TH/MM3 Eosinophils # (Auto) 0.1 TH/MM3 Basophils # (Auto) 0.0 TH/MM3 CBC Comment DIFF FINAL Differential Comment Prothrombin Time 10.7 SEC Prothromb Time International Ratio 1.1 RATIO Activated Partial Thromboplast Time 26.6 SEC Blood Urea Nitrogen 12 MG/DL Creatinine 0.40 MG/DL Random Glucose 102 MG/DL Calcium Level 9.5 MG/DL Sodium Level 139 MEQ/L Potassium Level 4.9 MEQ/L Chloride Level 107 MEQ/L Carbon Dioxide Level 26.1 MEQ/L Anion Gap 6 MEQ/L Estimat Glomerular Filtration Rate 189 ML/MIN [facility] Medical Decision Making Medical Screen Exam Complete: Yes Emergency Medical Condition: Yes Medical Record Reviewed: Yes Differential Diagnosis PEG tube dislodgment versus healed PEG tube site versus electrolyte abnormality Narrative Course 73-year-old female presents emergency department for evaluation after her PEG tube was noted to be dislodged today. Patient appears nontoxic. She is mildly tachycardic. Basic lab work is ordered to evaluate for dehydration as well as coag profile. Workup is initiated in triage ambulance hallway. Lab work is reviewed and without acute concern. Laboratory Tests Test 01/22/18 12:50 White Blood Count 4.9 TH/MM3 Red Blood Count 5.33 MIL/MM3 Hemoglobin 11.7 GM/DL Hematocrit 37.7 % Mean Corpuscular Volume 70.8 FL Mean Corpuscular Hemoglobin 22.0 PG Mean Corpuscular Hemoglobin Concent 31.1 % Red Cell Distribution Width 15.2 % Platelet Count 284 TH/MM3 Mean Platelet Volume 9.9 FL Neutrophils (%) (Auto) 62.1 % Lymphocytes (%) (Auto) 24.0 % Monocytes (%) (Auto) 11.5 % Eosinophils (%) (Auto) 1.4 % Basophils (%) (Auto) 1.0 % Neutrophils # (Auto) 3.0 TH/MM3 Lymphocytes # (Auto) 1.2 TH/MM3 Monocytes # (Auto) 0.6 TH/MM3 Eosinophils # (Auto) 0.1 TH/MM3 Basophils # (Auto) 0.0 TH/MM3 CBC Comment DIFF FINAL Differential Comment Prothrombin Time 10.7 SEC Prothromb Time International Ratio 1.1 RATIO Activated Partial Thromboplast Time 26.6 SEC Blood Urea Nitrogen 12 MG/DL Creatinine 0.40 MG/DL Random Glucose 102 MG/DL Calcium Level 9.5 MG/DL Sodium Level 139 MEQ/L Potassium Level 4.9 MEQ/L Chloride Level 107 MEQ/L Carbon Dioxide Level 26.1 MEQ/L Anion Gap 6 MEQ/L Estimat Glomerular Filtration Rate 189 ML/MIN 1440 patient returns from invasive radiology. G-tube has been replaced. Per documentation, this happened without difficulty. Patient was observed and postanesthesia unit. She is ready for discharge at this time. Diagnosis Primary Impression: Gastrostomy complication Referrals: Primary Care Physician Patient Instructions: General Instructions, How to Use and Care for Your PEG Tube (DC) Additional Instructions: Follow-up with your primary care provider Return immediately with any acute worsening symptoms Med/Other Pt SpecificInfo: No Change to Meds Disposition: 03 DISCHARGE TO SNF Condition: Stable Joann Elaine Jan 22, 2018 12:57
[2018-01-22 13:24] LABS: EOSINOPHIL # 0.1 TH/MM3 (0-0.4); EOSINOPHIL % 1.4 % (0.0-4.0); HEMATOCRIT 37.7 % (35.0-46.0); HEMOGLOBIN 11.7 GM/DL (11.6-15.3); LYMPHOCYTE # 1.2 TH/MM3 (1.0-4.8); MEAN CELL VOLUME 70.8 FL (80.0-100.0); MEAN CORPUSCULAR HGB CONC 31.1 % (32.0-36.0); MEAN PLATELET VOLUME 9.9 FL (7.0-11.0); MONO % 11.5 % (0.0-8.0); MONOCYTE # 0.6 TH/MM3 (0-0.9); NEUT % 62.1 % (16.0-70.0); PLATELET COUNT 284 TH/MM3 (150-450); RED BLOOD COUNT 5.33 MIL/MM3 (4.00-5.30); RED CELL DISTRIBUTION WIDTH 15.2 % (11.6-17.2); WHITE BLOOD COUNT 4.9 TH/MM3 (4.0-11.0)
[2018-01-22 13:35] LABS: INTERNATIONAL NORMALIZED RATIO 1.1 RATIO; PROTHROMBIN TIME - PATIENT 10.7 SEC (9.8-11.6)
[2018-01-22 13:41] LABS: BICARBONATE 26.1 MEQ/L (21.0-32.0); CALCIUM 9.5 MG/DL (8.5-10.1); CREATININE 0.4 MG/DL (0.50-1.00)
[2018-01-22] MEDS ORDERED: IOHEXOL 350 MG/ML 50 ML BTL (for RAD DIAG) G-TUBE ONE (14:37)
--- NOTE | 2018-01-22 14:54 | RADRPT ---
EXAM DATE/TIME: 01/22/2018 14:18 [place] COMPARISON: GASTROSTOMY TUBE PLACEMENT, July 14, 2017, 10:28. INDICATIONS : Patient with history of CVA. Patients G tube fell o ut. MEDICAL HISTORY : 1. CVA 2. GERD 3. HTN 4. Dyspahgia 5. Aphsia SURGICAL HISTORY : 1. G tube 2. ear surgery 3. Lt sided craniotomy 4. Hysterectomy ENCOUNTER: Initial ACUITY: 1 week PAIN SCORE: 0/10 FLUORO TIME: 1.0 minutes IMAGE SERIES: 2 CONTRAST: 10 cc Omnipaque (iohexol) 350 DEVICE(S): 1.) 18 Fr gastrostomy tube PROCEDURE : 1. Fluoroscopically guided gastrostomy tube placement. 2. Conscious sedation with continuous EKG and oximetry monitoring. The risks, benefits and alternatives to the procedure were explained and verbal and written consent w as obtained. The site was prepped in sterile fashion. Full sterile technique was used, including ca p, mask, sterile gloves and gown and a large sterile sheet. Hand hygiene and 2% chlorhexidine and/or betadine/alcohol prep was utilized per protocol for cutaneous antisepsis. The skin and subcutaneous tissues were infiltrated with local anesthetic solution. The stomach was accessed with a 6 [place] dilator An 0.035 wire was advanced into the small bowel. Th e tract was dilated. The gastrostomy tube was introduced through a peel-away sheath. The position wa s confirmed with an injection of contrast. Conscious sedation was performed with the prescribed dosages and duration as above in the presence of an independent trained radiology nurse to assist in the monitoring of the patient. EKG and oximetry remained stable throughout the procedure. The patient tolerated the procedure well and there were n o complications. The patient was sent to post anesthesia recovery in stable condition. CONCLUSION: Uncomplicated gastrostomy tube placement as above. Carlton Bermudez MD on January 22, 2018 at 14:52 Board Certified Radiologist. This report was verified electronically.
[2018-01-22 15:20] VITALS: BP 152/74
== END 2018-01-22 20:43 ==
LOC: NEDAMB 12:01
DX: K94.29 Other complications of gastrostomy (principal); R00.0 Tachycardia, unspecified; I12.9 Hypertensive chronic kidney disease with stage 1 through stage 4 chronic kidney disease, or unspecified chronic kidney disease; N18.9 Chronic kidney disease, unspecified; F03.90 Unspecified dementia, unspecified severity, without behavioral disturbance, psychotic disturbance, mood disturbance, and anxiety; I69.951 Hemiplegia and hemiparesis following unspecified cerebrovascular disease affecting right dominant side; M19.90 Unspecified osteoarthritis, unspecified site; K21.9 Gastro-esophageal reflux disease without esophagitis; Z79.899 Other long term (current) drug therapy
CPT/HCPCS: 49440; 80048; 85025; 85610; 85730; 99284; C1769; Q9967